=== PATIENT | male | born 1945 | race Caucasian/White ===

== ENCOUNTER 2023-10-08 07:05 | Observation (INO) ==
--- NOTE | 2023-10-02 10:29 | Anesthesiology Consultation ---
Date of Service October 02, 2023 Assessment & Plan (1) Encounter for pre-operative examination: Plan - PCP office note 09/26/23 [facility]: "...hypertension...status post angioplasty stent has bilateral inguinal hernias left side has doubled in size...will hold off on colonoscopy till hernia..." - cardiology office visit 03/07/23 [facility]: "...atherosclerotic coronary disease, status post INSOLVENCY CONSULTANT and stent of the left circumflex, June 2005 in the setting of acute ST elevation myocardial infarction. Stable class II angina pectoris with repeat cardiac catheterization March 2014 demonstrating distal right coronary artery stenosis...mild renal insufficiency...generally has been doing well...continue current medical regimen only change to reduce hydrochlorothiazide to 3 days per week..." - Per street inspector on 10/02/23: No known infectious disease contacts, current infectious disease symptoms in past 10 days or COVID positive test result in the past 30 days. Chart Review Chart Review: Acceptable Risk for Surgery and Patient NOT seen in Pre Admission Testing History Surgery Operation Date: 10/08/23 07:00 Proposed Procedures p Laparoscopic Bilateral Inguinal Hernia Repair With Mesh, Possible Open - Khoi Pena MD Height/Weight Height: 5 ft 3 in Weight: 70.307 kg Allergies Allergy/AdvReac Type Severity Reaction Status Date / Time No Known Allergies Allergy Unknown Verified 10/02/23 09:41 Medications Home Medications Medication Instructions Recorded Confirmed Last Taken amlodipine 10 mg tablet 10 mg PO QAM 10/21/20 10/02/23 10/22/20 atorvastatin 40 mg tablet 40 mg PO PM 10/21/20 10/02/23 10/21/20 losartan 100 mg tablet 100 mg PO PM 10/21/20 10/02/23 10/21/20 metoprolol succinate 25 mg 12.5 mg PO PM 10/21/20 10/02/23 10/21/20 tablet,extended release 24 hr multivitamin 1 tab PO PM 10/21/20 10/02/23 10/21/20 omeprazole 40 mg capsule,delayed 40 mg PO QAM 10/21/20 10/02/23 10/22/20 release hydrochlorothiazide 25 mg tablet 25 mg PO .UD 08/02/21 10/02/23 Unknown aspirin 81 mg capsule 81 mg PO QAM 02/07/22 10/02/23 Unknown terazosin 5 mg capsule 5 mg PO QPM 02/07/22 10/02/23 Unknown hydralazine 25 mg tablet 25 mg PO BID 08/08/22 10/02/23 Unknown finasteride 5 mg tablet 5 mg PO QPM 10/02/23 10/02/23 Unknown Past Medical History Medical History Barretts esophagus Bilateral inguinal hernia (BIH) Bilateral kidney stones no problems BPH w urinary obs/LUTS CAD (coronary artery disease) follows with Dr. Sow at [facility] Chronic kidney disease (CKD) Diverticulosis Gallstones episodic RUQ pain GERD (gastroesophageal reflux disease) History of posterior vitreous detachment (~2022) right eye, follows Dr. Pappas, Retinologist Hx of myocardial infarction (~2005) [facility] [place], [place], 1 stent Right Circumflex, follows with Dr. Sow at [facility] Hypertension Prediabetes A1C 6.1, diet controlled Renal cyst, left monitored, follows with Dr. Smith, Urology at [facility] Right bundle branch block Past Family History Family History Other No pertinent family history Past Surgical History Surgical History Hx of bilateral cataract extraction Hx of cardiac catheterization (~2005) x2 [facility] [place], [place], 1 stent Right Circumflex, follows with Dr. Sow at [facility] 2nd cath approx. 8 years ago (2015), no stent Hx of colonoscopy Hx of esophagogastroduodenoscopy Hx of heart artery stent [facility] [place], [place], 1 stent Right Circumflex, follows with Dr. Sow at [facility] Social History Smoking Status: Former smoker Do You Dip or Chew Tobacco: No Smoking End Date: quit (50 pack year history) Hx Alcohol Use: Yes alcohol intake frequency: holidays/special occasions only Hx Substance Use: No substance use type: does not use Testing Laboratory Results 09/26/23 WBC: 5.2 H/H: 12 PLATELETS: 242,000 SODIUM: 138 POTASSIUM: 4.3 CHLORIDE: 101 CO2: 24 BUN: 24 CREATININE: 1.4 GLUCOSE: 133 A1c: 6.1% Electrocardiogram Date: 09/27/23 Sinus bradycardia, rate 54 bpm RBBB Echocardiogram Date: 05/05/22 EF 60-64% Borderline concentric LV wall thickness Grade I diastolic dysfunction Mild aortic valve sclerosis Mild mitral regurgitation Stress Test Date: 07/11/22 Exercise METS 10 MPHR 100% Mild hypokinesis of the base inferior and posterior forman at rest and stress No evidence of inducible ischemia
--- OUTSIDE RECORDS SUMMARY | 2023-10-08 07:19 | External Medical Summary | Summary of Care ---
Author Name Unknown Organization [facility] Address [address] [place] [address] Phone [phone] Care Team Providers Care Manager Wastewater Name Role Phone Kamini FARRIS MD, Satya Workman Primary Care Provider [phone] Reason for Visit * Reason Comments NEW PATIENT B/l inguinal hernia. * Evaluate & Treat - Unlimited Visits (Within 10 days (routine)) - Authorized Specialty Diagnoses / Procedures Referred By Joon florez Referred To Contact General Surgery Diagnoses Non-recurrent bilateral inguinal hernia without obstruction or gangrene Satya Miguel III, MD [address] [place] [address] Referral ID Status Reason Start Date Expiration Date Visits Requested Visits Authorized [id number] Authorized Specialty Services Required 09/26/[phone] Encounter Details Date Type Department Care Team (Late st Contact Info) Description 09/27/2023 11:30 AM EDT Office Visit General Surgery, [facility] [address] [address] Khoi Pena MD [address] [id number] Non-recurrent bilateral inguinal hernia without obstruction or gangrene* Allergies No known active allergiesdocumented as of this encounter (statuses as of 09/27/2023) Medications Medication Sig Dispensed Refills Start Date End Date Status ASPIRIN EC LOW STRENGTH 81 MG PO TBECIndications:S/P angioplasty with stent,Coronary atherosclerosis of the [place] coronary artery take one tablet daily 34 11 07/11/2005 Active Calcium Carb-Cholecalciferol 500-200 MG-UNIT Oral Tablet 0 Active Multiple Vitamin Tablet 0 Active acetaminophen (TYLENOL) 500 MG Tablet 2 Tablets every 6 hours as needed. 0 Active Finasteride 5 MG Oral Tablet (Proscar) Take 1 Tablet by mouth at bedtime. 0 01/24/2021 Active EpiPen 2-Casey 0.3 MG/0.3ML Injection Solution Auto-injector For a severe reaction: Place orange end against the outer thigh, press firmly, hold in place for 10 seconds and go to the Emergency room. 1 Each 3 09/28/2022 Active Metoprolol Succinate ER 25 MG Oral Tablet Extended Release 24 Hour (toPROL XL) TAKE 1/2 TABLET BEFORE BEDTIME 45 Tablet 3 01/26/2023 Active Terazosin HCl 5 MG Oral Capsule (Hytrin)Indications:HT N, goal below 140/90,Atherosclerosis of the [place] coronary artery of [place] heart without angina pectoris TAKE 1 CAPSULE EVERY MORNING (DOSE CHANGE) 90 Capsule 3 01/26/2023 Active hydroCHLOROthiazide 25 MG Oral Tablet (Hydrodiuril)Indicatio ns:HTN, goal below 140/90 Take one 3 days per week 65 Tablet 3 03/07/2023 Active amLODIPine Besylate 10 MG Oral Tablet (Norvasc)Indications:H TN, goal below 140/90,Atherosclerosis of the [place] coronary artery of the [place] heart without angina pectoris,S/P angioplasty with stent TAKE 1 TABLET EVERY DAY 90 Tablet 3 05/10/2023 Active hydrALAZINE HCl 25 MG Oral Tablet (Apresoline)Indication s:HTN, goal below 140/90,Atherosclerosis of [place] coronary artery of the [place] heart without angina pectoris,S/P angioplasty with stent Take 1 Tablet by mouth 2 times a day. 180 Tablet 3 06/20/2023 Active Losartan Potassium 100 MG Oral Tablet (Cozaar) TAKE 1 TABLET EVERY DAY 90 Tablet 2 07/05/2023 Active Omeprazole 40 MG Oral Capsule Delayed Release (PriLOSEC) TAKE 1 CAPSULE DAILY, 1 HOUR BEFORE THE FIRST MEAL OF THE DAY 90 Capsule 2 07/05/2023 Active Atorvastatin Calcium 40 MG Oral Tablet (Lipitor)Indications:D yslipidemia, goal LDL below 100 TAKE 1 TABLET EVERY EVENING 90 Tablet 2 07/05/2023 Active documented as of this encounter (statuses as of 09/27/2023) Active Problems Problem Noted Date Diagnosed Date Prediabetes 07/03/2018 DYSLIPIDEMIA, GOAL LDL BELOW 100 05/18/2009 Overview: Per Lipid Taxonomy. HTN, GOAL BELOW 140/90 04/28/2009 Overview: Modified per HTN protocol #16. ADVANCE DIRECTIVE INFORMATION 07/11/2005 Overview: No, Advance Directive brochure offered , patient declined. S/P angioplasty with stent 07/11/2005 CORONARY ATHEROSCLER. 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 Dyslipidemia, goal to be determined 07/11/2005 05/18/2009 Overview: Per Lipid Taxonomy. documented as of this encounter (statuses as of 09/27/2023) Immunizations Name Administration Dates Next Due COVID-19 mRNA, LNP-s, No Pre serve, 2-Dose Series (Moderna) 08/12/2020,07/16/2020 COVID-19, MRNA-LNP, 23-24, P F, 30 MCG/0.3 mL, 12 YRS AND ABOVE, IM (PFIZER-Comirnat) 03/13/2023 COVID-19, mRNA, LNP-s, PF, B ooster, 100mcg/0.5mg (Moderna) 10/03/2021,04/06/2021 Covid-19, Mrna, Lnp-s, Pf, B ivalent, 30 Mcg, IM, 12 yrs and above (Pfizer) 12/06/2022,03/09/2022 Pneumococcal Conjugate Vacc, 13 Valent (Prevnar) 04/06/2015 Pneumococcal Polysaccharide PPV23 (Pneumovax) 04/17/2013 RSV Vac., Recomb, Adjuvant, PF,0.5 Ml (Arexvy) 02/26/2023 Seasonal Influenza, PF, 6 M & above, IM , (FluLaval or Fluzone) 03/16/2020 Seasonal Influenza, Quadriva lent Hd (Fluzone Hd) 03/26/2023,03/16/2022,03/16/2021 Seasonal Influenza, Split, I IV3, With Preserve, Inj 04/12/2017 Seasonal Influenza, Trivalen t, Adjuvanted, 65+ yrs 04/09/2019,04/28/2018 TDAP (age 10 and older)(Boostrix) 04/07/2016 Zoster Vaccine Recombinant (Shingrix) 11/27/2022 ,11/25/2022,06/27/2022 documented as of this encounter Social History Tobacco Use Types Packs/Day Years Used Date Smoking Tobacco: Former Cigarettes 1.5 6 Smokeless Tobacco: Never Alcohol Use Standard Drinks/Week Comments Yes 0 (1 standard drink = 0.6 oz pur e alcohol) socially PHQ-2 Answer Date Recorded PHQ Adult Total Score 0 03/16/2022 Hunger Vital Sign Answer Date Recorded Within the past 12 months, y ou worried that your food would run out before you got the money to buy more. Never true 09/12/19 24 Within the past 12 months, t he food you bought just didn't last and you didn't have money to get more. Never true 09/12/2023 Sex and Gender Information Value Date Recorded Sex Assigned at Male 09/12/2023 9:00 AM EDT Gender Identity Male 09/12/2023 9:00 AM EDT Sexual Orientation Straight 09/12/2023 9: 00 AM EDT Job Start Date Occupation Industry Not on file Not on file Not on file documented as of this encounter Last Filed Vital Signs Vital Sign Reading Time Taken Comments Blood Pressure 150/72 09/27/2023 11:20 AM EDT Pulse 75 09/27/2023 11:20 AM EDT Temperature - - Respiratory Rate - - Oxygen Saturation - - Inhaled Oxygen Concentration - - Weight 71.5 kg (157 lb 9.6 oz) 09/27/2023 11:20 AM EDT Height - - Body Mass Index 26.48 09/26/2023 7:58 AM EDT documented in this encounter Progress Notes * Khoi Pena MD - 09/27/2023 1:03 PM EDT CC- Chief Complaint Patient presents with NEW PATIENT B/l inguinal hernia. Ref: KAMINI SATYA FARRIS[[id number]] [address] [place] [address] (office) [phone] (fax) HPI.: Juliocesar Campos DO is a 77 year old male seen in consultation for a bilateral inguinal hernia. Symptoms have been present for a few years duration. Sxs did not start at work. Pain is dull, intermittent, and radiating to groin. Lump is not reducible. He has no Sxs of chronic constipation,chronic cough,difficulty urinating. Past Medical History Past Medical History: Diagnosis Date Gall stones Past Surgical History Past Surgical History: Procedure Laterality Date COLONOSCOPY, DIAGNOSTIC (RECTUM) 08/06/2018 tortuous colon, diverticulosis, repeat 5 yrs/COLONOSCOPY FLEXIBLE PROXIMAL DIAGNOSTIC performed by Brandyn Agustin MD at ENDOSCOPY [facility] EGD, FLEXIBLE, DIAGNOSTIC 05/28/2020 Blackburn's esophagitis, hiatal hernia, repeat 1 yr / ESOPHAGOGASTRODUODENOSCOPY (EGD), FLEXIBLE, TRANSORAL, DIAGNOSTIC performed by Soto Delcid MD at ENDOSCOPY [facility] EGD, FLEXIBLE, DIAGNOSTIC 05/17/2021 acid reflux, hiatal hernia, repeat 3 yrs / ESOPHAGOGASTRODUODENOSCOPY (EGD), FLEXIBLE, TRANSORAL, DIAGNOSTIC performed by Soto Delcid MD at ENDOSCOPY [facility] REMOVE CATARACT, INSERT LENS PROSTH Left 01/21/2019 left EXTRACAPSULAR CATARACT REMOVAL WITH INTRAOCULAR LENS performed by Dakotah Weinstein MD at OR [facility] REMOVE CATARACT, INSERT LENS PROSTH Right 01/28/2019 right EXTRACAPSULAR CATARACT REMOVAL WITH INTRAOCULAR LENS performed by Dakotah Weinstein MD at OR [facility] Medications: Current Outpatient Medications Medication Sig Dispense Refill ASPIRIN EC LOW STRENGTH 81 MG PO TBEC take one tablet daily 34 11 Calcium Carb-Cholecalciferol 500-200 MG-UNIT Oral Tablet Multiple Vitamin Tablet acetaminophen (TYLENOL) 500 MG Tablet 2 Tablets every 6 hours as needed. Finasteride 5 MG Oral Tablet (Proscar) Take 1 Tablet by mouth at bedtime. EpiPen 2-Casey 0.3 MG/0.3ML Injection Solution Auto-injector For a severe reaction: Place orange end against the outer thigh, press firmly, hold in place for 10 seconds and go to the Emergency room. 1 Each 3 Metoprolol Succinate ER 25 MG Oral Tablet Extended Release 24 Hour (toPROL XL) TAKE 1/2 TABLET BEFORE BEDTIME 45 Tablet 3 Terazosin HCl 5 MG Oral Capsule (Hytrin) TAKE 1 CAPSULE EVERY MORNING (DOSE CHANGE) 90 Capsule 3 hydroCHLOROthiazide 25 MG Oral Tablet (Hydrodiuril) Take one 3 days per week 65 Tablet 3 amLODIPine Besylate 10 MG Oral Tablet (Norvasc) TAKE 1 TABLET EVERY DAY 90 Tablet 3 hydrALAZINE HCl 25 MG Oral Tablet (Apresoline) Take 1 Tablet by mouth 2 times a day. 180 Tablet 3 Losartan Potassium 100 MG Oral Tablet (Cozaar) TAKE 1 TABLET EVERY DAY 90 Tablet 2 Omeprazole 40 MG Oral Capsule Delayed Release (PriLOSEC) TAKE 1 CAPSULE DAILY, 1 HOUR BEFORE THE FIRST MEAL OF THE DAY 90 Capsule 2 Atorvastatin Calcium 40 MG Oral Tablet (Lipitor) TAKE 1 TABLET EVERY EVENING 90 Tablet 2 No current facility-administered medications for this visit. Allergies: Allergies as of 09/27/2023 (No Known Allergies) Family History Family History Problem Relation Age of Onset Breast Cancer Mother Alzheimer's disease Mother Macular degeneration Mother Cancer Father gastric @ 48 Hypertension Brother Other (Other) Brother prediabetes, tubulovillous adenoma, obesity Social History Social History Socioeconomic History Marital status: Spouse name: Not on file Number of children: Not on file Years of education: Not on file Highest education level: Not on file Occupational History Not on file Tobacco Use Smoking status: Former Current packs/day: 1.50 Average packs/day: 1.5 packs/day for 6.0 years (9.0 ttl pk-yrs) Types: Cigarettes Smokeless tobacco: Never Vaping Use Vaping Use: Never used Substance and Sexual Activity Alcohol use: Yes Comment: socially Drug use: No Sexual activity: Not on file Other Topics Concern Not on file Social History Narrative Not on file Social Determinants of Health Financial Resource Strain: Not on file Food Insecurity: No Food Insecurity (09/12/2023) Hunger Vital Sign Worried About Running Out of Food in the Last Year: Never true Ran Out of Food in the Last Year: Never true Transportation Needs: Not on file Physical Activity: Not on file Stress: Not on file Social Connections: Not on file Intimate Partner Violence: Not on file Housing Stability: Not on file ROS: GEN: no weight loss, fever, fatigue HEENT: no changes in vision or hearing, no sinus problems, no sore throat, no hoarseness RESPIRATORY: no cough, wheezing, SOB or change in breathing CARDIOVASCULAR: no exertional chest pain, dyspnea, palpitations GI: no melena or hemetemesis, no change in bowel habits, no nausea or vomiting : no dysuria, hematuria, frequency MUSCULOSKELETAL: no change in joint pains, no new arthritis PSYCHIATRIC: no significant anxiety or depression, unchanged sleep pattern HEME: no bleeding tendency, no clotting tendency NEURO: no significant headache, no seizures , no tremors SKIN: no new rashes, no itching Physical Exam: Blood pressure 150/72, pulse 75, weight 71.5 kg (157 lb 9.6 oz). Constitutional: alert, healthy, well nourished Head: normocephalic, atraumatic Eyes: conjunctiva non-injected, sclera white Neck: supple, no adenopathy Lungs: clear to auscultation, breath sounds are equal and symmetric Heart: regular rate & rhythm and no murmur, gallops or rubs Abdomen: soft, non-tender Back: normal curvature, normal ROM, no CVA tenderness Extremities: no edema, no skin discoloration Skin: no obvious rashes or significant lesions Imaging: Reviewed old CT scan independently IMP: Juliocesar Campos DO is a 77 year old male with a large bilateral inguinal hernia which is currently symptomatic. For this reason, I have recommended that the patient consider a hernia repair. This could be performed in open or laparascopic approach. As his hernias are bilateral, we will attemptto proceed with laparoscopic repair. The left hernia is quite large, and may require open procedure. We discussed this at an depth. I discussed the surgery in detail and the complications related to the surgery and the anesthesia. Risks include, but are not limited to: recurrence of the hernia, persistent pain in the groin from injury to the ilioinguinal nerve, numbness, seroma formation, bleeding, infection and mesh infection requiring mesh removal. Patient understands these risks. Expected same day nature of surgery and postoperative recovery period reviewed. Activity restrictions postoperatively to include no heavy lifting or high impact activity for four to six weeks reviewed. All questions were answered to the patient's satisfaction and consent was signed. We also reviewed the signs and symptoms of incarceration and the patient was instructed to go directly to the emergency room should this occur. Khoi Pena MD 09/27/2023 1:03 PM * Sahra Solis LPN - 09/27/2023 12:18 PM EDT Patient identified by name and date of . Chief Complaint Patient presents with NEW PATIENT B/l inguinal hernia. Patient scheduled at [facility] for fara inguinal hernia with dr pena. Date of Test: 10/08/2023 Medications reviewed. EKG obtained Labs: obtained- done yesterday- no need to do today Permit signed. Patient verbalizes understanding of pre- and post op instructions. Written instructions given for review at later date. Sahra Solis LPN 09/27/2023 documented in this encounter Nursing Notes * Justice Del Castillo MED ASSIST - 09/27/2023 11:21 AM EDT Chief Complaint Patient presents with NEW PATIENT B/l inguinal hernia. Verified patient. Some pain 5/10 on/off. Patient is here for a surgery consultation today. documented in this encounter Plan of Treatment Upcoming Encounters Date Type Department Care Team (Late st Contact Info) Description 10/10/2023 9:45 AM EDT Scheduled Telephone General Surgery, [facility] [address] [place] [address] Ankur, Nurse Gen Surg [facility] [address] [place] [address] 10/12/2023 3:30 PM EDT Office Visit Cardiology, [facility] [address] [place] [address] David Sow MD [address] [place] [address] 10/24/2023 11:45 AM EDT Office Visit General Surgery, [facility] [address] [place] [address] Khoi Pena MD [address] [place] [address] 04/02/2024 8:00 AM EDT Office Visit Family Practice [facility] [address] [place] [address] Satya Miguel III, MD [address] [place] [place] [address] Scheduled Orders Name Type Priority Associated Diagnoses Orde r Schedule EKG EKG Routine Non-recurrent bilateral inguinal hernia without obstruction or gangrene Ordered: 09/27/2023 Scheduled Procedures Name Priority Associated Diagnoses Date/Ti me LAPAROSCOPIC REPAIR INGUINAL HERNIA INITIAL Non-recurrent bilateral inguinal hernia without obstruction or gangrene ESOPHAGOGASTRODUODENOSCOPY ( EGD), FLEXIBLE, TRANSORAL, DIAGNOSTIC Recall Blackburn esophagus COLONOSCOPY FLEXIBLE PROXIMAL DIAGNOSTIC Recall Family history of colonic polyps Health Maintenance Due Date Last Done Comments Depression Screening 03/16/2023 03/16/2022 COLONOSCOPY-EVERY 5 YRS AGES 18-100 08/06/2023 08/06/2018, 08/06/2018 GFR 09/25/2024 09/26/2023, 03/11, 09/14/2022, Additional history exists HbA1c 09/25/2024 09/26/2023, 04/0 11/2022, 12/13/2021, Additional history exists DTaP,Tdap,and Td Vaccines (2 - Td or Tdap) 04/07/2026 04/07/2016 Albumin/Creatinine Ratio 09/25/2026 024, 03/26/2023, 03/17/2022, Additional history exists Pneumococcal Vaccine: 65+ Years Completed 04/06/2015, 04/17/2013 Zoster Vaccines Completed 11/27/2022, 11/09, 06/27/2022 COVID-19 Vaccine Completed 03/13/2023, , 03/09/2022, Additional history exists Influenza Vaccine (FLU shot) Completed , 03/26/2023, 03/16/2022, Additional history exists GARDASIL-HPV IMMUNIZATION SERIES Aged Out No longer eligible based on patient's age to complete this topic Hepatitis B Aged Out No longer eligi ble based on patient's age to complete this topic MENINGOCOCCAL (MENACTRA/MENVEO) Aged Out No longer eligible based on patient's age to complete this topic documented as of this encounter Medical Devices Implanted Type Area Roller Painter Device Identifier Shelf Expiration Date Model / Serial / Lot Lens Intraoc 23.5 - [id number] - [id number] Implanted:Qty: 1 on 01/21/2019 by Dakotah Weinstein MD at OR [facility] Left: Eye [employer] 04/10/2023 [id number] / [id number] / Lens Intraoc 23.5 - [id number] - [id number] Implanted:Qty: 1 on 01/28/2019 by Dakotah Weinstein MD at OR [facility] Right: Eye [employer] 10/09/2023 [id number] / [id number] / [id number] documented as of this encounter Visit Diagnoses Diagnosis Non-recurrent bilateral inguinal hernia without obstruction or gangrene- Primary documented in this encounter Advance Directives Documents on File Type Date Recorded 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
--- OUTSIDE RECORDS SUMMARY | 2023-10-08 07:20 | External Medical Summary | Summary of Care ---
Author Name Unknown Organization [facility] Address [address] [facility] [place] [address] Phone [phone] Care Team Providers Care Crew Leader/Control Room Operator Name Role Phone Lamont FARRIS MD, Satya Workman Primary Care Provider [phone] Reason for Visit * Reason Comments eRx-Medication Refill Encounter Details Date Type Department Care Team (Late st Contact Info) Description 07/04/2023 Refill Family Practice [facility] [address] [facility] [place] [address] Satya Suárez III, MD [address] [facility] [place] [address] Dyslipidemia, goal LDL below 100 Allergies No known active allergiesdocumented as of this encounter (statuses as of 07/05/2023) Medications Medication Sig Dispensed Refills Start Date End Date Status ASPIRIN EC LOW STRENGTH 81 MG PO TBECIndications:S/P angioplasty with stent,Coronary atherosclerosis of eagle coronary artery take one tablet daily 34 11 6 Active Calcium Carb-Cholecalciferol 500-200 MG-UNIT Oral Tablet 0 Active Multiple Vitamin Tablet 0 Active acetaminophen (TYLENOL) 500 MG Tablet 2 Tablets every 6 hours as needed. 0 Active Finasteride 5 MG Oral Tablet (Proscar) Take 1 Tablet by mouth at bedtime. 0 1 Active EpiPen 2-Casey 0.3 MG/0.3ML Injection Solution Auto-injector For a severe reaction: Place orange end against the outer thigh, press firmly, hold in place for 10 seconds and go to the Emergency room. 1 Each 3 3 Active Metoprolol Succinate ER 25 MG Oral Tablet Extended Release 24 Hour (toPROL XL) TAKE 1/2 TABLET BEFORE BEDTIME 45 Tablet 3 3 Active Terazosin HCl 5 MG Oral Capsule (Hytrin)Indications: HTN, goal below 140/90,Atheroscleros is of eagle coronary artery of eagle heart without angina pectoris TAKE 1 CAPSULE EVERY MORNING (DOSE CHANGE) 90 Capsule 3 3 Active hydroCHLOROthiazide 25 MG Oral Tablet (Hydrodiuril)Indicat ions:HTN, goal below 140/90 Take one 3 days per week 65 Tablet 3 3 Active amLODIPine Besylate 10 MG Oral Tablet (Norvasc)Indications :HTN, goal below 140/90,Atheroscleros is of eagle coronary artery of eagle heart without angina pectoris,S/P angioplasty with stent TAKE 1 TABLET EVERY DAY 90 Tablet 3 3 Active hydrALAZINE HCl 25 MG Oral Tablet (Apresoline)Indicati ons:HTN, goal below 140/90,Atheroscleros is of eagle coronary artery of eagle heart without angina pectoris,S/P angioplasty with stent Take 1 Tablet by mouth 2 times a day. 180 Tablet 3 4 Active Losartan Potassium 100 MG Oral Tablet (Cozaar) TAKE 1 TABLET EVERY DAY 90 Tablet 2 4 Active Omeprazole 40 MG Oral Capsule Delayed Release (PriLOSEC) TAKE 1 CAPSULE DAILY, 1 HOUR BEFORE THE FIRST MEAL OF THE DAY 90 Capsule 2 4 Active Atorvastatin Calcium 40 MG Oral Tablet (Lipitor)Indications :Dyslipidemia, goal LDL below 100 TAKE 1 TABLET EVERY EVENING 90 Tablet 2 4 Active Omeprazole 40 MG Oral Capsule Delayed Release (PriLOSEC) TAKE 1 CAPSULE DAILY, 1 HOUR BEFORE THE FIRST MEAL OF THE DAY 90 Capsule 2 3 07/05/19 24 Discontinued Losartan Potassium 100 MG Oral Tablet (Cozaar) TAKE 1 TABLET EVERY DAY 90 Tablet 1 3 07/05/19 24 Discontinued Atorvastatin Calcium 40 MG Oral Tablet (Lipitor)Indications :Dyslipidemia, goal LDL below 100 TAKE 1 TABLET EVERY EVENING 90 Tablet 1 3 07/05/19 24 Discontinued documented as of this encounter (statuses as of 07/05/2023) Active Problems Problem Noted Date Diagnosed Date Benign hypertensive heart an d CKD, 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 HTN, GOAL BELOW 140/90 04/28/2009 Overview: Modified per HTN protocol #16. ADVANCE DIRECTIVE INFORMATION 07/11/2005 Overview: No, Advance Directive brochure offered , patient declined. S/P angioplasty with stent 07/11/2005 CORONARY ATHEROSCLER. 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 Dyslipidemia, goal to be determined 07/11/2005 05/18/2009 Overview: Per Lipid Taxonomy. documented as of this encounter (statuses as of 07/05/2023) Immunizations Name Administration Dates Next Due COVID-19 mRNA, LNP-s, No Pre serve, 2-Dose Series (Moderna) 08/12/2020,07/16/2020 COVID-19, MRNA-LNP, 23-24, P F, 30 MCG/0.3 mL, 12 YRS AND ABOVE, [facility] 03/13/2023 COVID-19, mRNA, LNP-s, PF, B ooster, [...] 03/16/2022 Hunger Vital Sign Answer Date Recorded Worried About Running Out of Food in the Last Ye ar Never true 07/07/2019 Ran Out of Food in the Last Year Never true 07/07/2019 Sex and Gender Information Value Date Recorded Sex Assigned at Not on file Gender Identity Not on file Sexual Orientation Not on file Job Start Date Occupation Industry Not on file Not on file Not on file documented as of this encounter Miscellaneous Notes * Telephone Encounter - Raquel Velez, [facility] - 07/05/2023 6:50 AM ESTSigned Prescriptions: Disp Refills Losartan Potassium 100 MG Oral Tablet (Coz*90 Tab*2 Sig: TAKE 1 TABLET EVERY DAYAuthorizing Provider: SATYA SUÁREZ III [facility] User: RAQUEL VELEZ Omeprazole 40 MG Oral Capsule Delayed Rele*90 Cap*2 Sig: TAKE 1 CAPSULE DAILY, 1 HOUR BEFORE THE FIRST MEAL OF THE DAYAuthorizing Provider: SATYA SUÁREZ III User: RAQUEL VELEZ Atorvastatin [id number] MG Oral Tablet (Li*90 Tab*2 Sig: TAKE 1 TABLET EVERY EVENINGAuthorizing Provider: SATYA SUÁREZ III User: RAQUEL VELEZ documented in this encounter Plan of Treatment Upcoming Encounters Date Type Department Care Team (Late st Contact Info) Description 09/26/2023 8:00 AM EDT Office Visit Family Practice [facility] [place] [address] [place] [address] Satya Suárez III, MD [address] [facility] [place] [address] Scheduled Procedures Name Priority Associated Diagnoses Date/Ti me ESOPHAGOGASTRODUODENOSCOPY ( EGD), FLEXIBLE, TRANSORAL, DIAGNOSTIC Recall Blackburn esophagus COLONOSCOPY FLEXIBLE PROXIMAL DIAGNOSTIC Recall Family history of colonic polyps Health Maintenance Due Date Last Done Comments Depression Screening 03/16/2023 03/16/2022 COLONOSCOPY-EVERY 5 YRS AGES 18-100 08/06/2023 08/06/2018, 08/06/2018 HbA1c 09/15/2023 09/14/2022, 07/0 10/2021, 09/14/2021, Additional history exists GFR 09/25/2023 03/26/2023, 040 11/2022, 05/16/2022, Additional history exists Albumin/Creatinine Ratio 03/26/20242 023, 03/17/2022, 07/07/2019 CKD HGB USE SMARTSET 38463 03/26/202403/26, 09/14/2022, 09/14/2022, Additional history exists CKD PHOS USE SMARTSET 65325 03/26/202403/11, 09/14/2021, 09/14/2020, Additional history exists DTaP,Tdap,and Td Vaccines (2 - Td or Tdap) 04/07/2026 04/07/2016 Pneumococcal Vaccine: 65+ Years Completed 04/06/2015, 04/17/2013 [...] this encounter Medical Devices Implanted Type Area Time Study Statistician Device Identifier Shelf Expiration Date Model / Serial / Lot Lens Intraoc 23.5 - [id number] - [id number] Implanted:Qty: 1 on 01/21/2019 by Dakotah Weinstein MD at [facility] Left: Eye [employer]CH [employer]OM[employer] 04/10/2023 [id number] / [id number] / Lens Intraoc 23.5 - [id number] - [id number] Implanted:Qty: 1 on 01/28/2019 by Dakotah Weinstein MD at [facility] Right: Eye BAUSCH [employer] LOMB 10/09/2023 [id number] / [id number] / [id number] documented as of this encounter Visit Diagnoses Diagnosis Dyslipidemia, goal LDL below 100 Other and unspecified hyperlipidemia documented in this encounter Advance Directives Documents on File Type Date Recorded Patient Sales Property Manager Expl anation Advance Directives and Livin g Will 07/30/2018 LIVING WILL Power of Special Agent Group Insurance 07/30/2018 POWER OF A TTORNEY Care Teams Crew Leader/Control Room Operator Relationship Specialty Start Date End Date Satya Suárez III, MD [address] [place] [address] PCP - General Family Medicine 07/03/18 documented as of this encounter
--- OUTSIDE RECORDS SUMMARY | 2023-10-08 07:20 | External Medical Summary | Summary of Care ---
Author Name Unknown Organization [facility] Address [address] [facility] [place] [address] Phone [phone] Care Team Providers Care Nurse Advocate Name Role Phone Lamont FARRIS MD, Billy Workman Primary Care Provider [phone] Reason for Visit * Reason Comments eRx-Medication Refill Encounter Details Date Type Department Care Team (Late st Contact Info) Description 05/09/2023 Refill Cardiology, [facility] [address] [place] [address] Luis Armando Sow MD [address] [place] [address] HTN, goal below 140/90; Atherosclerosis of tanana coronary artery of tanana heart without angina pectoris; S/P angioplasty with stent Allergies No known active allergiesdocumented as of this encounter (statuses as of 05/10/2023) Medications Medication Sig Dispensed Refills Start Date End Date Status ASPIRIN EC LOW STRENGTH 81 MG PO TBECIndications:S/P angioplasty with stent,Coronary atherosclerosis of tanana coronary artery take one tablet daily 34 11 6 Active Calcium Carb-Cholecalciferol 500-200 MG-UNIT Oral Tablet 0 Active Multiple Vitamin Tablet 0 Active acetaminophen (TYLENOL) 500 MG Tablet 2 Tablets every 6 hours as needed. 0 Active Finasteride 5 MG Oral Tablet (Proscar) Take 1 Tablet by mouth at bedtime. 0 1 Active Omeprazole 40 MG Oral Capsule Delayed Release (PriLOSEC) TAKE 1 CAPSULE DAILY, 1 HOUR BEFORE THE FIRST MEAL OF THE DAY 90 Capsule 2 3 Active EpiPen 2-Casey 0.3 MG/0.3ML Injection Solution Auto-injector For a severe reaction: Place orange end against the outer thigh, press firmly, hold in place for 10 seconds and go to the Emergency room. 1 Each 3 3 Active Losartan Potassium 100 MG Oral Tablet (Cozaar) TAKE 1 TABLET EVERY DAY 90 Tablet 1 3 Active Atorvastatin Calcium 40 MG Oral Tablet (Lipitor)Indications :Dyslipidemia, goal LDL below 100 TAKE 1 TABLET EVERY EVENING 90 Tablet 1 3 Active Metoprolol Succinate ER 25 MG Oral Tablet Extended Release 24 Hour (toPROL XL) TAKE 1/2 TABLET BEFORE BEDTIME 45 Tablet 3 3 Active Terazosin HCl 5 MG Oral Capsule (Hytrin)Indications: HTN, goal below 140/90,Atheroscleros is of tanana coronary artery of tanana heart without angina pectoris TAKE 1 CAPSULE EVERY MORNING (DOSE CHANGE) 90 Capsule 3 3 Active hydroCHLOROthiazide 25 MG Oral Tablet (Hydrodiuril)Indicat ions:HTN, goal below 140/90 Take one 3 days per week 65 Tablet 3 3 Active hydrALAZINE HCl 25 MG Oral Tablet (Apresoline)Indicati ons:HTN, goal below 140/90,Atheroscleros is of tanana coronary artery of tanana heart without angina pectoris,S/P angioplasty with stent Take 1 Tablet by mouth. 0 3 Active amLODIPine Besylate 10 MG Oral Tablet (Norvasc)Indications :HTN, goal below 140/90,Atheroscleros is of tanana coronary artery of tanana heart without angina pectoris,S/P angioplasty with stent TAKE 1 TABLET EVERY DAY 90 Tablet 3 3 Active amLODIPine Besylate 10 MG Oral Tablet (Norvasc)Indications :HTN, goal below 140/90,Atheroscleros is of tanana coronary artery of tanana heart without angina pectoris,S/P angioplasty with stent TAKE 1 TABLET EVERY DAY 90 Tablet 3 2 05/10/20 23 Discontinued documented as of this encounter (statuses as of 05/10/2023) Active Problems Problem Noted Date Diagnosed Date [...] angioplasty with stent 07/11/2005 CORONARY ATHEROSCLER. OF [place] CORONARY VESSEL 07/11/2005 documented as of this encounter (statuses as of 05/10/2023) Resolved Problems Problem Noted Date Diagnosed Date Resolved Date Atherosclerosis of tanana co ronary artery of tanana heart with stable angina pectoris 12/30/2018 12/30/2018 Hypertensive kidney disease with chronic kidney disease stage III 12/25/2018 09/14/2022 Kidney disease, chronic, sta ge III (GFR 30-59 ml/min) 08/19/2018 01/23/2019 Overview: Per CKD protocol #1 HYPERTENSION NOS 07/11/2005 04/28/2009 Overview: Modified per HTN protocol #16. Dyslipidemia, goal to be determined 07/11/2005 05/18/2009 Overview: Per Lipid Taxonomy. documented as of this encounter (statuses as of 05/10/2023) Immunizations Name Administration Dates Next Due COVID-19 [...] (Prevnar) 04/06/2015 Pneumococcal Polysaccharide PPV23 (Pneumovax) 04/17/2013 Rsv Vac., Recomb, Adjuvant, Pf,0.5 Ml (Arexvy) 02/26/2023 SEASONAL INFLUENZA, PF, 6 M & Above, IM , (FLULAVAL or FLUZONE) 03/16/2020 Seasonal Influenza, Quadriva lent Hd (Fluzone [...] encounter Miscellaneous Notes * Telephone Encounter - Luis Armando Sow MD - 05/10/2023 9:51 AM ESTSigned Prescriptions: Disp Refills amLODIPine Besylate 10 MG Oral Tablet (Nor*90 Tab*3 Sig: TAKE 1 TABLET EVERY DAY Authorizing Provider: LUIS ARMANDO SOW * Telephone Encounter - Lucretia Guillen CMA - 05/09/2023 3:14 PM ESTPending Prescriptions: Disp Refills amLODIPine Besylate 10 MG Oral Tablet [Pha*90 Tab*3 Sig: TAKE 1 TABLET EVERY DAY * Telephone Encounter - Lucretia Guillen CMA - 05/09/2023 3:13 PM EST Did you pend patient's preferred pharmacy and medication before forwarding?yes [facility] [address] [facility] Pending Prescriptions: Disp Refills amLODIPine Besylate 10 MG Oral Tablet (No*90 Tab*3 Sig: TAKE 1 TABLET EVERY DAY Last Visit: 03/07/2023 (in office), Visit date not found (telemedicine) Next Visit: Visit date not found If no future appointments scheduled, and last appointment is greater than a year ago, please schedule patient for a follow-up appointment Last date the medication was ordered: Is this request for a controlled substance?No Urine Drug Screen:No results found for this or any previous visit. Patient Phone Numbers Labs: Lab Results Component Value Date/Time CREAT 1.3 (H) 03/26/2023 08:38 AM CREAT 1.18 09/07/2020 12:00 AM CREAT 1.2 05/13/2020 11:20 AM POTASSIUM 4.5 03/26/2023 08:38 AM POTASSIUM 4.1 09/07/2020 12:00 AM POTASSIUM 4.6 05/13/2020 11:20 AM TSH 2.67 09/14/2022 08:35 AM TSH 1.45 12/11/2002 01:54 PM LDLCALC 58 09/14/2022 08:35 AM LDLCALC 38 10/03/2019 08:41 AM LDLDIRECT NOT APPLICABLE 12/22/2016 09:33 AM LDLDIRECT 40 09/28/2005 09:15 AM LDLDIRECT RESULTS RECHECKED 09/28/2005 09:15 AM ALT 21 03/26/2023 08:38 AM ALT 31 05/13/2020 11:20 AM HGBA1C 6.1 (H) 09/14/2022 08:35 AM HGBA1C 6.1 (H) 07/07/2019 09:43 AM documented in this encounter Plan of Treatment Upcoming Encounters Date Type Department Care Team (Late st Contact Info) Description 09/26/2023 8:00 AM EDT Office Visit Family Practice [facility] [address] [facility] [place] [address] FoardBilly shaikh III, MD [address] [place] [address] Scheduled Procedures Name Priority Associated Diagnoses Date/Ti me ESOPHAGOGASTRODUODENOSCOPY ( EGD), FLEXIBLE, TRANSORAL, DIAGNOSTIC Recall [place] esophagus COLONOSCOPY FLEXIBLE PROXIMAL DIAGNOSTIC Recall Family history of colonic polyps Health Maintenance Due Date Last Done Comments Depression Screening 03/16/2023 03/16/2022 COLONOSCOPY-EVERY 5 YRS AGES 18-100 08/06/2023 08/06/2018, 08/06/2018 HbA1c 09/15/2023 09/14/2022, 07/0 10/2021, 09/14/2021, Additional history exists GFR 09/25/2023 03/26/2023, 04/0 11/2022, 05/16/2022, Additional history exists Albumin/Creatinine Ratio 03/26/2024 023, 03/17/2022, 07/07/2019 CKD HGB USE SMARTSET 10307 03/26/202403/26, 09/14/2022, 09/14/2022, Additional history exists CKD PHOS USE SMARTSET 35556 03/26/202403/11, 09/14/2021, 09/14/2020, Additional history exists DTaP,Tdap,and [...] this encounter Medical Devices Implanted Type Area Regulatory Submissions Associate Device Identifier Shelf Expiration Date Model / Serial / Lot Lens Intraoc 23.5 - [id number] - [id number] Implanted:Qty: 1 on 01/21/2019 by Dakotah Weinstein MD at [facility] Left: Eye [employer]CH [employer]OMB 04/10/2023 [id number] / [id number] / Lens Intraoc 23.5 - [id number] - [id number] Implanted:Qty: 1 on 01/28/2019 by Dakotah Weinstein MD at [facility] Right: Eye BAUSCH [employer] LOMB 10/09/2023 [id number] / [id number] / [id number] documented as of this encounter Visit Diagnoses Diagnosis HTN, goal below 140/90 Unspecified essential hypertension Atherosclerosis of tanana coronary artery of tanana heart without angina pectoris S/P angioplasty with stent Postsurgical percutaneous transluminal coronary angioplasty status documented in this encounter Advance Directives Documents on File Type Date Recorded Patient Curtain Mender Expl anation Advance Directives and Livin g Will 07/30/2018 LIVING WILL Power of Personalized Living Manager 07/30/2018 POWER OF A TTORNEY Care Teams Nurse Advocate Relationship Specialty Start Date End Date Billy Miguel III, MD [address] [facility] [place] [address] PCP - General Family Medicine 07/03/18 documented as of this encounter
--- OUTSIDE RECORDS SUMMARY | 2023-10-08 07:20 | External Medical Summary | Summary of Care ---
Author Name Unknown Organization [facility] Address [address] [place] [facility] [place] [address] Phone [phone] Care Team Providers Care Wallpaper Embosser Helper Name Role Phone Lamont FARRIS MD, Billy Workman Primary Care Provider [phone] Reason for Referral * Evaluate & Treat - Unlimited Visits (Within 10 days (routine)) - Authorized Specialty Diagnoses / Procedures Referred By Joon florez Referred To Contact General Surgery Diagnoses Non-recurrent bilateral inguinal hernia without obstruction or gangrene Billy Miguel III, MD [address] [facility] [place] [address] Referral ID Status Reason Start Date Expiration Date Visits Requested Visits Authorized [id number] Authorized Specialty Services Required 09/26/[phone] Question Answer Referral Priority Within 10 days (routine) [facility] this appointment be scheduled? [facility] What condition is the patient being seen for? General Surgery Conditions What condition is the patient being seen for? 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)*; HTN, GOAL BELOW 140/90; DYSLIPIDEMIA, GOAL LDL BELOW 100; Prediabetes; Non-recurrent bilateral inguinal hernia without obstruction or gangrene Allergies No known active allergiesdocumented as of this encounter (statuses as of 09/26/2023) Medications Medication Sig Dispensed Refills Start Date End Date Status ASPIRIN EC LOW STRENGTH 81 MG PO TBECIndications:S/P angioplasty with stent,Coronary atherosclerosis of [place] coronary artery take one tablet daily 34 [...] Capsule (Hytrin)Indications:HT N, goal below 140/90,Atherosclerosis of [place] coronary artery of [place] heart without angina pectoris TAKE 1 CAPSULE EVERY MORNING (DOSE CHANGE) 90 Capsule 3 01/26/2023 Active hydroCHLOROthiazide 25 MG Oral Tablet (Hydrodiuril)Indicatio ns:HTN, goal below 140/90 Take one 3 days per week 65 Tablet 3 03/07/2023 Active amLODIPine Besylate 10 MG Oral Tablet (Norvasc)Indications:H TN, goal below 140/90,Atherosclerosis of [place] coronary artery of [place] heart without angina pectoris,S/P angioplasty with stent TAKE 1 TABLET EVERY DAY 90 Tablet 3 05/10/2023 Active hydrALAZINE HCl 25 MG Oral Tablet (Apresoline)Indication s:HTN, goal below 140/90,Atherosclerosis of [place] coronary artery of [place] heart without angina pectoris,S/P angioplasty with stent [...] as of this encounter (statuses as of 09/26/2023) Active Problems Problem Noted Date Diagnosed Date Prediabetes 07/03/2018 DYSLIPIDEMIA, GOAL LDL BELOW 100 05/18/2009 Overview: Per Lipid Taxonomy. HTN, GOAL BELOW 140/90 04/28/2009 Overview: Modified per HTN protocol #16. ADVANCE DIRECTIVE INFORMATION 07/11/2005 Overview: No, Advance Directive brochure offered , patient declined. S/P angioplasty with stent 07/11/2005 CORONARY ATHEROSCLER. 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 Dyslipidemia, goal to be determined 07/11/2005 05/18/2009 Overview: Per Lipid Taxonomy. documented as of this encounter (statuses as of 09/26/2023) Immunizations Name Administration Dates Next Due COVID-19 mRNA, LNP-s, No Pre serve, 2-Dose Series (Moderna) 08/12/2020,07/16/2020 COVID-19, MRNA-LNP, 23-24, P F, 30 MCG/0.3 mL, 12 YRS AND ABOVE, IM (PFIZER-Comirnaty) 03/13/2023 COVID-19, mRNA, LNP-s, PF, B ooster, [...] Sign Reading Time Taken Comments Blood Pressure 120/58 09/26/2023 7:58 AM EDT Pulse 63 09/26/2023 7:58 AM EDT Temperature 35.7 C (96.2 F) 09/26/2023 7:58 AM ED T Respiratory Rate 16 09/26/2023 7:58 AM EDT Oxygen Saturation 98% 09/26/2023 7:58 AM EDT Inhaled Oxygen Concentration - - Weight 71.1 kg (156 lb 12.8 oz) 09/26/2023 7:58 AM EDT Height 164.3 cm (5' 4.69") 09/26/2023 7:58 AM ED T Body Mass Index 26.35 09/26/2023 7:58 AM EDT documented in this encounter Progress Notes * [place] III, Billy Workman MD - 09/26/2023 8:39 AM EDT Juliocesar Campos DO is a 77 year old male. Chief Complaint Patient presents with Re-Check HPI: Follow up hypertension dyslipidemia status post angioplasty stent has bilateral inguinal hernias left side has doubled in size the past couple of months achy discomfort with walking has a right-sided hernia as well had to cancel the planned trip to [place] [employer] [email or web address] no exertional chest pain can have some dyspnea on stressful climbs no change in bowels melena or gross bleeding no dysuria or hematuria PMH: Patient Active Problem List Diagnosis Code ADVANCE DIRECTIVE INFORMATION S/P angioplasty with stent Z95.820 CORONARY ATHEROSCLER. OF [place] CORONARY VESSEL I25.10 HTN, GOAL BELOW 140/90 I10 DYSLIPIDEMIA, GOAL LDL BELOW 100 E78.5 Prediabetes R73.03 Current Outpatient Medications Medication Sig Dispense Refill [...] No current facility-administered medications for this visit. Review of patient's allergies indicates: No Known Allergies Past Medical History: Diagnosis Date Gall stones Past Surgical History: Procedure Laterality Date COLONOSCOPY, DIAGNOSTIC (RECTUM) 08/06/2018 tortuous colon, diverticulosis, repeat 5 yrs/COLONOSCOPY FLEXIBLE PROXIMAL DIAGNOSTIC performed by Brandyn Agustin MD at ENDOSCOPY [facility] EGD, FLEXIBLE, DIAGNOSTIC 05/28/2020 Blackburn's esophagitis, hiatal hernia, repeat 1 yr / ESOPHAGOGASTRODUODENOSCOPY (EGD), FLEXIBLE, TRANSORAL, DIAGNOSTIC performed by Soto Delcid MD at ENDOSCOPY [facility] EGD, FLEXIBLE, DIAGNOSTIC 05/17/2021 acid reflux, hiatal hernia, repeat 3 yrs / ESOPHAGOGASTRODUODENOSCOPY (EGD), FLEXIBLE, TRANSORAL, DIAGNOSTIC performed by Soto Delcid MD at ENDOSCOPY [facility] REMOVE CATARACT, INSERT LENS PROSTH Left 01/21/2019 left EXTRACAPSULAR CATARACT REMOVAL WITH INTRAOCULAR LENS performed by Dakotah Weinstein MD at OR [facility] REMOVE CATARACT, INSERT LENS PROSTH Right 01/28/2019 right EXTRACAPSULAR CATARACT REMOVAL WITH INTRAOCULAR LENS performed by Dakotah Weinstein MD at OR [facility] Objective: The patient is a 77 year old male BP 120/58 | Pulse 63 | Temp 35.7 C (96.2 F) (Tympanic) | Resp 16 | Ht 1.643 m (5' 4.69") | Wt 71.1 kg (156 lb 12.8 oz) | SpO2 98% | BMI 26.35 kg/m | BSA 1.8 m General: alert, healthy, and no distress Eye Exam: PERRLA, extraocular movements intact, conjunctiva are pink and non- injected, sclera clear Oropharynx: no exudate, no erythema, lips, buccal mucosa, and tongue normal, and mucous membranes are moist Heart: regular rate & rhythm, no murmur, and no gallops Lungs: lungs clear to auscultation Extremities: no clubbing, no cyanosis, trace edema bilaterally Exam (Male): Bilateral inguinal hernias massive on the left ASSESSMENT: I25.118 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)(primary encounter diagnosis) I10 HTN, GOAL BELOW 140/90 E78.5 DYSLIPIDEMIA, GOAL LDL BELOW 100 R73.03 Prediabetes K40.20 Non-recurrent bilateral inguinal hernia without obstruction or gangrene PLAN: COVID booster discussed check lab work General Surgery consult will hold off on colonoscopy till hernias dealt with will be needing follow-up 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 Billy Miguel III, MD documented in this encounter Nursing Notes * Layla Win LPN - 09/26/2023 7:56 AM EDT Juliocesar Campos DO presents for 6 month recheck. Medications & HM reviewed. Hernias have become problematic and would like to address that and what to do documented in this encounter Plan of Treatment Upcoming Encounters Date Type Department Care Team (Late st Contact Info) Description 09/26/2023 9:20 AM EDT Laboratory Laboratory [facility] [address] [place], [place] [id number] [facility] [address] [facility] [place] [address] HTN, GOAL BELOW 140/90; DYSLIPIDEMIA, GOAL LDL BELOW 100; Prediabetes 09/27/2023 11:30 AM EDT Office Visit General Surgery, [facility] [address] [place] [address] Khoi Pena MD [address] [place] [address] 10/12/2023 3:30 PM EDT Office Visit Cardiology, [facility] [address] [place] [address] David Sow MD [address] [place] [address] 04/02/2024 8:00 AM EDT Office Visit Family Practice [facility] [place] [address] [facility] [place], [place] [address] Billy Miguel III, MD [address] [facility] [place] [address] Pending Results Name Type Priority Associated Diagnoses Date /Time HEMOGLOBIN A1C Lab Routine HTN, GOAL BELOW 140/90 DYSLIPIDEMIA, GOAL LDL BELOW 100 Prediabetes 09/26/2023 8:45 AM EDT COMPREHENSIVE METABOLIC PANEL Lab Routine HTN, GOAL BELOW 140/90 DYSLIPIDEMIA, GOAL LDL BELOW 100 09/26/2023 8:45 AM EDT LIPID PANEL WITH DIRECT LDL IF TG IS HIGH Lab Routine HTN, GOAL BELOW 140/90 DYSLIPIDEMIA, GOAL LDL BELOW 100 09/26/2023 8:45 AM EDT CBC Lab Routine HTN, GOAL BELOW 140/90 DYSLIPIDEMIA, GOAL LDL BELOW 100 09/26/2023 8:45 AM EDT Scheduled Orders Name Type Priority Associated Diagnoses Orde r Schedule HEMOGLOBIN A1C Lab Routine HTN, GOAL BELOW 140/90 DYSLIPIDEMIA, GOAL LDL BELOW 100 Prediabetes Expected: 09/26/2023 (Approximate), Expires: 09/25/2024 COMPREHENSIVE METABOLIC PANEL Lab Routine HTN, GOAL BELOW 140/90 DYSLIPIDEMIA, GOAL LDL BELOW 100 Expected: 09/26/2023 (Approximate), Expires: 09/25/2024 LIPID PANEL WITH DIRECT LDL IF TG IS HIGH Lab Routine HTN, GOAL BELOW 140/90 DYSLIPIDEMIA, GOAL LDL BELOW 100 Expected: 09/26/2023, Expires: 09/25/2024 CBC Lab Routine HTN, GOAL BELOW 140/90 DYSLIPIDEMIA, GOAL LDL BELOW 100 Expected: 09/26/2023 (Approximate), Expires: 09/25/2024 ALBUMIN / CREATININE RATIO, URINE Lab Routine HTN, GOAL BELOW 140/90 Prediabetes Expected: 09/26/2023 (Approximate), Expires: 09/25/2024 Scheduled Procedures Name Priority Associated Diagnoses Date/Ti me ESOPHAGOGASTRODUODENOSCOPY ( EGD), FLEXIBLE, TRANSORAL, DIAGNOSTIC Recall Blackburn esophagus COLONOSCOPY FLEXIBLE PROXIMAL DIAGNOSTIC Recall Family history of colonic polyps Scheduled Referrals Name Type Priority Associated Diagnoses Orde r Schedule SURGERY REFERRAL OP Referral Within 10 da ys (routine) Non-recurrent bilateral inguinal hernia without obstruction or gangrene Ordered: 09/26/2023 Health Maintenance Due Date Last Done Comments Depression Screening 03/16/2023 03/16/2022 COLONOSCOPY-EVERY 5 YRS AGES 18-100 08/06/2023 08/06/2018, 08/06/2018 HbA1c 09/15/2023 09/14/2022, 07/0 10/2021, 09/14/2021, Additional history exists GFR 03/26/2024 03/26/2023, 04/0 11/2022, 05/16/2022, Additional history exists Albumin/Creatinine Ratio 03/26/2026 023, 03/17/2022, 07/07/2019 DTaP,Tdap,and Td Vaccines (2 - Td or [...] this encounter Medical Devices Implanted Type Area [employer] Device Identifier Shelf Expiration Date Model / Serial / Lot Lens Intraoc 23.5 - [id number] - [id number] Implanted:Qty: 1 on 01/21/2019 by Dakotah Weinstein MD at OR [facility] Left: Eye [employer] 04/10/2023 [id number] / [id number] / Lens Intraoc 23.5 - [id number] - [id number] Implanted:Qty: 1 on 01/28/2019 by Dakotah Weinstein MD at OR [facility] Right: Eye [employer]OM[employer] 10/09/2023 [id number] / [id number] / [id number] documented as of this encounter Visit Diagnoses Diagnosis 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)- Primary HTN, GOAL BELOW 140/90 Unspecified essential hypertension DYSLIPIDEMIA, GOAL LDL BELOW 100 Other and unspecified hyperlipidemia Prediabetes Other abnormal glucose Non-recurrent bilateral inguinal hernia without obstruction or gangrene HTN, GOAL BELOW 140/90 Unspecified essential hypertension DYSLIPIDEMIA, GOAL LDL BELOW 100 Other and unspecified hyperlipidemia Prediabetes Other abnormal glucose documented in this encounter Advance Directives Documents on File Type Date Recorded 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
--- OUTSIDE RECORDS SUMMARY | 2023-10-08 07:20 | External Medical Summary | Summary of Care ---
Author Name Unknown Organization [facility] Address [address] [facility] [place] [address] Phone [phone] Care Team Providers Care Bridal Consultant Name Role Phone Lamont FARRIS MD, Billy Workman Primary Care Provider [phone] Reason for Visit * Reason Comments Outpatient Testing Encounter Details Date Type Department Care Team (Late st Contact Info) Description 09/26/2023 9:20 AM EDT Laboratory Laboratory [facility] [place] [address] [place] [id number] [facility] [address] [facility] [place] [address] HTN, GOAL BELOW 140/90; DYSLIPIDEMIA, GOAL LDL BELOW 100; Prediabetes Allergies No known active allergiesdocumented as of this encounter (statuses as of 09/26/2023) Medications Medication Sig Dispensed Refills Start Date End Date Status ASPIRIN EC LOW STRENGTH 81 MG PO TBECIndications:S/P angioplasty with stent,Coronary atherosclerosis of [place] coronary artery take one tablet daily 34 [...] Capsule (Hytrin)Indications:HT N, goal below 140/90,Atherosclerosis of [place] coronary artery of [place] heart without angina pectoris TAKE 1 CAPSULE EVERY MORNING (DOSE CHANGE) 90 Capsule 3 01/26/2023 Active hydroCHLOROthiazide 25 MG Oral Tablet (Hydrodiuril)Indicatio ns:HTN, goal below 140/90 Take one 3 days per week 65 Tablet 3 03/07/2023 Active amLODIPine Besylate 10 MG Oral Tablet (Norvasc)Indications:H TN, goal below 140/90,Atherosclerosis of [place] coronary artery of [place] heart without angina pectoris,S/P angioplasty with stent TAKE 1 TABLET EVERY DAY 90 Tablet 3 05/10/2023 Active hydrALAZINE HCl 25 MG Oral Tablet (Apresoline)Indication s:HTN, goal below 140/90,Atherosclerosis of [place] coronary artery of [place] heart without angina pectoris,S/P angioplasty with stent [...] angioplasty with stent 07/11/2005 CORONARY ATHEROSCLER. 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), w CHF 09/14/2021 09/26/2023 Atherosclerosis of [place] co ronary artery of [place] heart with stable angina pectoris 12/30/2018 12/30/2018 [...] on file documented as of this encounter Plan of Treatment Upcoming Encounters Date Type Department Care Team (Late st Contact Info) Description 09/27/2023 11:30 AM EDT Office Visit General Surgery, [facility] [address] [place] [address] Khoi Pena MD [address] [place] [address] 10/12/2023 3:30 PM EDT Office Visit Cardiology, [facility] [address] [address] [address] David Sow MD [address] [place] [address] 04/02/2024 8:00 AM EDT Office Visit Family Practice [facility] [place] [address] [facility] [place] [address] Billy Miguel III, MD [address] [facility] [place] [address] Pending Results Name Type Priority Associated Diagnoses [...] LDL BELOW 100 09/26/2023 8:45 AM EDT ALBUMIN / CREATININE RATIO, URINE Lab Routine HTN, GOAL BELOW 140/90 Prediabetes 09/26/2023 9:08 AM EDT Scheduled Procedures Name Priority Associated Diagnoses Date/Ti me ESOPHAGOGASTRODUODENOSCOPY ( EGD), FLEXIBLE, TRANSORAL, DIAGNOSTIC Recall Blackburn esophagus COLONOSCOPY FLEXIBLE PROXIMAL DIAGNOSTIC Recall Family history of colonic polyps Health Maintenance Due Date Last Done Comments Depression Screening 03/16/2023 03/16/2022 COLONOSCOPY-EVERY 5 YRS AGES 18-100 08/06/2023 08/06/2018, 08/06/2018 HbA1c 09/15/2023 09/14/2022, 07/0 10/2021, 09/14/2021, Additional history exists GFR 03/26/2024 03/26/2023, 040 11/2022, 05/16/2022, Additional history exists [...] this encounter Medical Devices Implanted Type Area Safety Compliance Specialist Device Identifier Shelf Expiration Date Model / Serial / Lot Lens Intraoc 23.5 - [id number] - [id number] Implanted:Qty: 1 on 01/21/2019 by Dakotah Weinstein MD at OR [facility] Left: Eye [employer]OM[employer] 04/10/2023 [id number] / [id number] / Lens Intraoc 23.5 - [id number] - [id number] Implanted:Qty: 1 on 01/28/2019 by Dakotah Weinstein MD at OR [facility] Right: Eye [employer]OM[employer] 10/09/2023 [id number] / [id number] / [id number] documented as of this encounter Visit Diagnoses Diagnosis HTN, GOAL BELOW 140/90 Unspecified essential hypertension DYSLIPIDEMIA, GOAL LDL BELOW 100 Other and unspecified hyperlipidemia Prediabetes Other abnormal glucose documented in this encounter Advance Directives Documents on File Type Date Recorded 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
--- OUTSIDE RECORDS SUMMARY | 2023-10-08 07:20 | External Medical Summary | Summary of Care ---
Author Name Unknown Organization [facility] Address [address] [place] [address] Phone [phone] Care Team Providers Care Registered Massage Therapist Name Role Phone Lamont FARRIS MD, Billy Workman Primary Care Provider [phone] Encounter Details Date Type Department Care Team (Late st Contact Info) Description 06/12/2023 Orders Only Outcomes Research Department [address] [place] [address] Josephine Christensen CHRA [employer] Other*[id number] Allergies No known active allergiesdocumented as of this encounter (statuses as of 06/12/2023) Medications Medication Sig Dispensed Refills Start Date End Date Status ASPIRIN EC LOW STRENGTH 81 MG PO TBECIndications:S/P angioplasty with stent,Coronary atherosclerosis of [place] coronary artery take one tablet daily 34 11 07/11/2005 Active Calcium Carb-Cholecalciferol 500-200 MG-UNIT Oral Tablet 0 Active Multiple Vitamin Tablet 0 Active acetaminophen (TYLENOL) 500 MG Tablet 2 Tablets every 6 hours as needed. 0 Active Finasteride 5 MG Oral Tablet (Proscar) Take 1 Tablet by mouth at bedtime. 0 01/24/2021 Active Omeprazole 40 MG Oral Capsule Delayed Release (PriLOSEC) TAKE 1 CAPSULE DAILY, 1 HOUR BEFORE THE FIRST MEAL OF THE DAY 90 Capsule 2 07/26/2022 Active EpiPen 2-Casey 0.3 MG/0.3ML Injection Solution Auto-injector For a severe reaction: Place orange end against the outer thigh, press firmly, hold in place for 10 seconds and go to the Emergency room. 1 Each 3 09/28/2022 Active Losartan Potassium 100 MG Oral Tablet (Cozaar) TAKE 1 TABLET EVERY DAY 90 Tablet 1 09/30/2022 Active Atorvastatin Calcium 40 MG Oral Tablet (Lipitor)Indications:D yslipidemia, goal LDL below 100 TAKE 1 TABLET EVERY EVENING 90 Tablet 1 11/26/2022 Active Metoprolol Succinate ER 25 MG Oral Tablet Extended Release 24 Hour (toPROL XL) TAKE 1/2 TABLET BEFORE BEDTIME 45 Tablet 3 01/26/2023 Active Terazosin HCl 5 MG Oral Capsule (Hytrin)Indications:HT N, goal below 140/90,Atherosclerosis of [place] coronary artery of [place] heart without angina pectoris TAKE 1 CAPSULE EVERY MORNING (DOSE CHANGE) 90 Capsule 3 01/26/2023 Active hydroCHLOROthiazide 25 MG Oral Tablet (Hydrodiuril)Indicatio ns:HTN, goal below 140/90 Take one 3 days per week 65 Tablet 3 03/07/2023 Active hydrALAZINE HCl 25 MG Oral Tablet (Apresoline)Indication s:HTN, goal below 140/90,Atherosclerosis of [place] coronary artery of [place] heart without angina pectoris,S/P angioplasty with stent Take 1 Tablet by mouth. 0 05/02/2023 Active amLODIPine Besylate 10 MG Oral Tablet (Norvasc)Indications:H TN, goal below 140/90,Atherosclerosis of [place] coronary artery of [place] heart without angina pectoris,S/P angioplasty with stent TAKE 1 TABLET EVERY DAY 90 Tablet 3 05/10/2023 Active documented as of this encounter (statuses as of 06/12/2023) Active Problems Problem Noted Date Diagnosed Date [...] angioplasty with stent 07/11/2005 CORONARY ATHEROSCLER. OF [place] CORONARY VESSEL 07/11/2005 documented as of this encounter (statuses as of 06/12/2023) Resolved Problems Problem Noted Date Diagnosed Date Resolved Date Atherosclerosis of [place] co ronary artery of [place] heart with stable angina pectoris 12/30/2018 12/30/2018 Hypertensive kidney disease with chronic kidney disease stage III 12/25/2018 09/14/2022 Kidney disease, chronic, sta ge III (GFR 30-59 ml/min) 08/19/2018 01/23/2019 Overview: Per CKD protocol #1 HYPERTENSION NOS 07/11/2005 04/28/2009 Overview: Modified per HTN protocol #16. Dyslipidemia, goal to be determined 07/11/2005 05/18/2009 Overview: Per Lipid Taxonomy. documented as of this encounter (statuses as of 06/12/2023) Immunizations Name Administration Dates Next Due COVID-19 [...] 8:00 AM EDT Office Visit Family Practice [facility] [address] [facility] [place] [address] Billy Miguel III, MD [address] [place] [address] Scheduled Orders Name Type Priority Associated Diagnoses Orde r Schedule MYCODE SUBSEQUENT ADULT Lab Routine [employer] Research Other*[id number] Every 6 Months for 2 Occurrences starting 06/12/2023 until 07/01/2024 Scheduled Procedures Name Priority Associated Diagnoses Date/Ti [...] 023, 03/17/2022, 07/07/2019 CKD HGB USE SMARTSET 99633 03/26/202403/26, 09/14/2022, 09/14/2022, Additional history exists CKD PHOS USE SMARTSET 87597 03/26/202403/11, 09/14/2021, 09/14/2020, Additional history exists DTaP,Tdap,and [...] this encounter Medical Devices Implanted Type Area Bankman Device Identifier Shelf Expiration Date Model / Serial / Lot Lens Intraoc 23.5 - [id number] - [id number] Implanted:Qty: 1 on 01/21/2019 by Dakotah Weinstein MD at OR [facility] Left: Eye [employer]OM[employer] 04/10/2023 [id number] / [id number] / Lens Intraoc 23.5 - [id number] - [id number] Implanted:Qty: 1 on 01/28/2019 by Dakotah Weinstein MD at OR [facility] Right: Eye [employer]OM[employer] 10/09/2023 [id number] / [id number] / [id number] documented as of this encounter Visit Diagnoses Diagnosis [employer] Research Other*[id number] documented in this encounter Advance Directives Documents on File Type Date Recorded Patient Hyperbaric Tech Expl anation Advance Directives and Livin g Will 07/30/2018 LIVING WILL Power of Shoe Salesman 07/30/2018 POWER OF A TTORNEY Care Teams Registered Massage Therapist Relationship Specialty Start Date End Date Billy Miguel III, MD [address] [facility] [place] [address] PCP - General Family Medicine 07/03/18 documented as of this encounter
--- OUTSIDE RECORDS SUMMARY | 2023-10-08 07:20 | External Medical Summary ---
Author Name Unknown Address Unknown Organization K09:[facility] [place] [address] Laboratory Report Ordering Provider Test Date Status KAMINI HERNADEZ III 09/26/2023 08:45:38 Final Observation Date Value Abnormality Reference (Units ) Status WBC, Total 09/26/2023 08:45:38 5.24 4.00-10.8 0 (K/uL) Final RBC 09/26/2023 08:45:38 3.91 4.50-5.25 (M/uL) Final Hemoglobin 09/26/2023 08:45:38 12.0 Below low normal 14 .0-16.8 (g/dL) Final HCT 09/26/2023 08:45:38 36.9 Below low normal 40. 0-48.4 (%) Final MCV 09/26/2023 08:45:38 94.4 82.0-99.5 (fL) Final MCH 09/26/2023 08:45:38 30.7 27.0-34.0 (pg) Final MCHC 09/26/2023 08:45:38 32.5 32.0-36.0 (g/dL) Final RDW 09/26/2023 08:45:38 12.3 11.5-15.5 (%) Final Platelets 09/26/2023 08:45:38 242 140-400 (K /uL) Final MPV 09/26/2023 08:45:38 9.8 6.6-11.1 ( fL) Final Performing Location [facility] [place] [address]
--- OUTSIDE RECORDS SUMMARY | 2023-10-08 07:20 | External Medical Summary | Summary of Care ---
Author Name Unknown Organization [facility] Address [address] [facility] [place] [address] Phone [phone] Care Team Providers Care Aviation Maintenance Instructor Name Role Phone Lamont FARRIS MD, Billy Workman Primary Care Provider [phone] Reason for Visit * Reason Comments Outpatient Testing Encounter Details Date Type Department Care Team (Late st Contact Info) Description 09/26/2023 9:20 AM EDT Laboratory Laboratory [facility] [place] [address] [place] [phone] [facility] [address] [facility] [place] [address] HTN, GOAL BELOW 140/90; DYSLIPIDEMIA, GOAL LDL BELOW 100; Prediabetes Allergies No known active allergiesdocumented as of this encounter (statuses as of 09/26/2023) Medications Medication Sig Dispensed Refills Start Date End Date Status ASPIRIN EC LOW STRENGTH 81 MG PO TBECIndications:S/P angioplasty with stent,Coronary atherosclerosis of [place] coronary artery take one tablet daily 34 [...] Capsule (Hytrin)Indications:HT N, goal below 140/90,Atherosclerosis of [place] coronary artery of [place] heart without angina pectoris TAKE 1 CAPSULE EVERY MORNING (DOSE CHANGE) 90 Capsule 3 01/26/2023 Active hydroCHLOROthiazide 25 MG Oral Tablet (Hydrodiuril)Indicatio ns:HTN, goal below 140/90 Take one 3 days per week 65 Tablet 3 03/07/2023 Active amLODIPine Besylate 10 MG Oral Tablet (Norvasc)Indications:H TN, goal below 140/90,Atherosclerosis of [place] coronary artery of [place] heart without angina pectoris,S/P angioplasty with stent TAKE 1 TABLET EVERY DAY 90 Tablet 3 05/10/2023 Active hydrALAZINE HCl 25 MG Oral Tablet (Apresoline)Indication s:HTN, goal below 140/90,Atherosclerosis of [place] coronary artery of [place] heart without angina pectoris,S/P angioplasty with stent [...] angioplasty with stent 07/11/2005 CORONARY ATHEROSCLER. 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), w CHF 09/14/2021 09/26/2023 Atherosclerosis of [place] co ronary artery of [place] heart with stable angina pectoris 12/30/2018 12/30/2018 [...] 11:30 AM EDT Office Visit General Surgery, [facility] [address] [address] Khoi Pena MD [address] [place] [address] 10/12/2023 3:30 PM EDT Office Visit Cardiology, [facility] [address] [address] David Sow MD [address] [place] [address] 04/02/2024 8:00 AM EDT Office Visit Family Practice [facility] [place] [address] [facility] [place] [address] Billy Miguel III, MD [address] [facility] [place] [address] Pending Results Name Type Priority Associated Diagnoses [...] BELOW 100 09/26/2023 8:45 AM EDT Scheduled Procedures Name Priority Associated [...] this encounter Medical Devices Implanted Type Area Traffic Engineering Technician Device Identifier Shelf Expiration Date Model / Serial / Lot Lens Intraoc 23.5 - [id number] - [id number] Implanted:Qty: 1 on 01/21/2019 by Dakotah Weinstein MD at OR [facility] Left: Eye [employer]OM[employer] 04/10/2023 [id number] / [id number] / Lens Intraoc 23.5 - [id number] - [id number] Implanted:Qty: 1 on 01/28/2019 by Dakotah Weinstein MD at OR [facility] Right: Eye [employer]OM[employer] 10/09/2023 [id number] / [id number] / [id number] documented as of this encounter Visit Diagnoses Diagnosis HTN, GOAL BELOW 140/90 Unspecified essential hypertension DYSLIPIDEMIA, GOAL LDL BELOW 100 Other and unspecified hyperlipidemia Prediabetes Other abnormal glucose documented in this encounter Advance Directives Documents on File Type Date Recorded Patient Electronic Court Recorder Expl anation Advance Directives and Livin g Will 07/30/2018 LIVING WILL Power of Soil Conservation Teacher 07/30/2018 POWER OF A TTORNEY Care Teams Aviation Maintenance Instructor Relationship Specialty Start Date End Date Billy Miguel III, MD [address] [place] [address] PCP - General Family Medicine 07/03/18 documented as of this encounter
--- OUTSIDE RECORDS SUMMARY | 2023-10-08 07:20 | External Medical Summary | Summary of Care ---
Author Name Unknown Organization [facility] Address [address] [facility] [place] [address] Phone [phone] Care Team Providers Care Programmer Analyst Consultant Name Role Phone Lamont FARRIS MD, Billy Workman Primary Care Provider [phone] Reason for Visit * Reason Comments Outpatient Testing Encounter Details Date Type Department Care Team (Late st Contact Info) Description 09/26/2023 9:20 AM EDT Laboratory Laboratory [facility] [place] [address] [place] [id number] [facility] [address] [facility] [place] [address] HTN, GOAL BELOW 140/90; DYSLIPIDEMIA, GOAL LDL BELOW 100; Prediabetes Allergies No known active allergiesdocumented as of this encounter (statuses as of 09/26/2023) Medications Medication Sig Dispensed Refills Start Date End Date Status ASPIRIN EC LOW STRENGTH 81 MG PO TBECIndications:S/P angioplasty with stent,Coronary atherosclerosis of [place] coronary artery take one tablet daily 34 [...] Capsule (Hytrin)Indications:HT N, goal below 140/90,Atherosclerosis of [place] coronary artery of [place] heart without angina pectoris TAKE 1 CAPSULE EVERY MORNING (DOSE CHANGE) 90 Capsule 3 01/26/2023 Active hydroCHLOROthiazide 25 MG Oral Tablet (Hydrodiuril)Indicatio ns:HTN, goal below 140/90 Take one 3 days per week 65 Tablet 3 03/07/2023 Active amLODIPine Besylate 10 MG Oral Tablet (Norvasc)Indications:H TN, goal below 140/90,Atherosclerosis of [place] coronary artery of [place] heart without angina pectoris,S/P angioplasty with stent TAKE 1 TABLET EVERY DAY 90 Tablet 3 05/10/2023 Active hydrALAZINE HCl 25 MG Oral Tablet (Apresoline)Indication s:HTN, goal below 140/90,Atherosclerosis of [place] coronary artery of [place] heart without angina pectoris,S/P angioplasty with stent [...] angioplasty with stent 07/11/2005 CORONARY ATHEROSCLER. 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), w CHF 09/14/2021 09/26/2023 Atherosclerosis of [place] co ronary artery of [place] heart with stable angina pectoris 12/30/2018 12/30/2018 [...] 11:30 AM EDT Office Visit General Surgery, [facility] [address] [address] Khoi Pena MD [address] [address] 10/12/2023 3:30 PM EDT Office Visit Cardiology, [facility] [address] [address] David Sow MD [address] [place] [address] 04/02/2024 8:00 AM EDT Office Visit Family Practice [facility] [place] [address] [facility] [place] [address] Billy Miguel III, MD [address] [facility] [place] [address] Pending Results Name Type Priority Associated Diagnoses [...] this encounter Medical Devices Implanted Type Area Molecular Spectroscopist Device Identifier Shelf Expiration Date Model / Serial / Lot Lens Intraoc 23.5 - [id number] - [id number] Implanted:Qty: 1 on 01/21/2019 by Dakotah Weinstein MD at OR [facility] Left: Eye [employer]OM[employer] 04/10/2023 [id number] / [id number] / Lens Intraoc 23.5 - [id number] - [id number] Implanted:Qty: 1 on 01/28/2019 by Dakotah Weinstein MD at OR [facility] Right: Eye [employer] 10/09/2023 [id number] / [id number] / [id number] documented as of this encounter Visit Diagnoses Diagnosis HTN, GOAL BELOW 140/90 Unspecified essential hypertension DYSLIPIDEMIA, GOAL LDL BELOW 100 Other and unspecified hyperlipidemia Prediabetes Other abnormal glucose documented in this encounter Advance Directives Documents on File Type Date Recorded Patient Licensed Optician Expl anation Advance Directives and Livin g Will 07/30/2018 LIVING WILL Power of Elastic Attacher Overlock 07/30/2018 POWER OF A TTORNEY Care Teams Programmer Analyst Consultant Relationship Specialty Start Date End Date Billy Miguel III, MD [address] [place] [address] PCP - General Family Medicine 07/03/18 documented as of this encounter
--- OUTSIDE RECORDS SUMMARY | 2023-10-08 07:20 | External Medical Summary | Summary of Care ---
Author Name Unknown Organization [facility] [address] [facility] [address] Phone [phone] Care Team Providers Care Cargo Checker Name Role Phone Lamont FARRIS MD, Billy Workman Primary Care Provider [phone] Reason for Visit * Reason Onset Date Comments Health Maintenance 09/19/2023 Encounter Details Date Type Department Care Team (Late st Contact Info) Description 09/19/2023 Telephone Family Practice [facility] [place] [address] [facility] [place] [address] Billy Miguel III, MD [address] [facility] [address] Health Maintenance Allergies No known active allergiesdocumented as of this encounter (statuses as of 09/19/2023) Medications Medication Sig Dispensed Refills Start Date End Date Status ASPIRIN EC LOW STRENGTH 81 MG PO TBECIndications:S/P angioplasty with stent,Coronary atherosclerosis of [place] coronary artery take one tablet daily 34 [...] Capsule (Hytrin)Indications:HT N, goal below 140/90,Atherosclerosis of [place] coronary artery of [place] heart without angina pectoris TAKE 1 CAPSULE EVERY MORNING (DOSE CHANGE) 90 Capsule 3 01/26/2023 Active hydroCHLOROthiazide 25 MG Oral Tablet (Hydrodiuril)Indicatio ns:HTN, goal below 140/90 Take one 3 days per week 65 Tablet 3 03/07/2023 Active amLODIPine Besylate 10 MG Oral Tablet (Norvasc)Indications:H TN, goal below 140/90,Atherosclerosis of [place] coronary artery of [place] heart without angina pectoris,S/P angioplasty with stent TAKE 1 TABLET EVERY DAY 90 Tablet 3 05/10/2023 Active hydrALAZINE HCl 25 MG Oral Tablet (Apresoline)Indication s:HTN, goal below 140/90,Atherosclerosis of [place] coronary artery of [place] heart without angina pectoris,S/P angioplasty with stent [...] as of this encounter (statuses as of 09/19/2023) Active Problems Problem Noted Date Diagnosed Date [...] angioplasty with stent 07/11/2005 CORONARY ATHEROSCLER. OF [place] CORONARY VESSEL 07/11/2005 documented as of this encounter (statuses as of 09/19/2023) Resolved Problems Problem Noted Date Diagnosed Date Resolved Date Atherosclerosis of [place] co ronary artery of [place] heart with stable angina pectoris 12/30/2018 12/30/2018 Hypertensive kidney disease with chronic kidney disease stage III 12/25/2018 09/14/2022 Kidney disease, chronic, sta ge III (GFR 30-59 ml/min) 08/19/2018 01/23/2019 Overview: Per CKD protocol #1 HYPERTENSION NOS 07/11/2005 04/28/2009 Overview: Modified per HTN protocol #16. Dyslipidemia, goal to be determined 07/11/2005 05/18/2009 Overview: Per Lipid Taxonomy. documented as of this encounter (statuses as of 09/19/2023) Immunizations Name Administration Dates Next Due COVID-19 [...] encounter Miscellaneous Notes * Telephone Encounter - Haven Atkinson LPN - 09/19/2023 9:07 AM EDT Care Gaps Comprehensive Care Outreach Last Office/Telemedicine Visit: 03/26/2023 (in office), Visit date not found (telemedicine) Next Office Visit: 09/26/2023 Hemoglobin AIC Results: Lab Results Component Value Date/Time HEMOGLOBIN A1C - [facility] 6.1 (H) 09/14/2022 08:35 AM HEMOGLOBIN A1C - [facility] 5.8 (H) 12/13/2021 07:39 AM HEMOGLOBIN A1C - [facility] 6.6 (H) 09/14/2021 08:35 AM HEMOGLOBIN A1C - [facility] 6.1 (H) 07/07/2019 09:43 AM HEMOGLOBIN A1C - [facility] 5.9 (H) 05/16/2018 09:19 AM BP Readings from Last 1 Encounters: 03/26/23 132/52 Reviewed Health Maintenance below: Health Maintenance Topic Date Due Depression Screening 03/16/2023 COLONOSCOPY-EVERY 5 YRS AGES 18-100 08/06/2023 HbA1c 09/15/2023 GFR 09/25/2023 Labs colon Care Gap Outreach Action Taken: Unable to reach documented in this encounter Plan of Treatment Upcoming Encounters Date Type Department Care Team (Late st Contact Info) Description 09/26/2023 8:00 AM EDT Office Visit Family Practice [facility] [address] [facility] [place] [address] Billy Miguel III, MD [address] [facility] [place] [address] 10/12/2023 3:30 PM EDT Office Visit Cardiology, [facility] [address] [place] [address] David Sow MD [address] [place] [id number] Scheduled Procedures Name Priority Associated Diagnoses Date/Ti [...] 11/2022, 05/16/2022, Additional history exists Albumin/Creatinine Ratio 03/26/202403/26/ 023, 03/17/2022, 07/07/2019 CKD HGB USE SMARTSET 34516 03/26/202403/26, 09/14/2022, 09/14/2022, Additional history exists CKD PHOS USE SMARTSET 37104 03/26/202403/11, 09/14/2021, 09/14/2020, Additional history exists DTaP,Tdap,and [...] this encounter Medical Devices Implanted Type Area Cab Driver Device Identifier Shelf Expiration Date Model / Serial / Lot Lens Intraoc 23.5 - [id number] - [id number] Implanted:Qty: 1 on 01/21/2019 by Dakotah Weinstein MD at OR [facility] Left: Eye [employer]OMB 04/10/2023 [id number] / [id number] / Lens Intraoc 23.5 - [id number] - [id number] Implanted:Qty: 1 on 01/28/2019 by Dakotah Weinstein MD at OR [facility] Right: Eye [employer]CH [employer] LOMB 10/09/2023 [id number] / [id number] / [id number] documented as of this encounter Advance Directives Documents on File Type Date Recorded Patient Hospice Aide Expl anation Advance Directives and Livin g Will 07/30/2018 LIVING WILL Power of Lift Supervisor 07/30/2018 POWER OF A TTORNEY Care Teams Cargo Checker Relationship Specialty Start Date End Date Billy Miguel III, MD [address] [place] [address] PCP - General Family Medicine 07/03/18 documented as of this encounter
--- OUTSIDE RECORDS SUMMARY | 2023-10-08 07:20 | External Medical Summary ---
Author Name Unknown Address Unknown Organization K09:[facility] [address] [place] [address] Laboratory Report Ordering Provider Test Date Status KAMINI HERNADEZ III 09/26/2023 08:45:38 Final Observation Date Value Abnormality Reference (Units ) Status BUN 09/26/2023 08:45:38 24 Above high normal 6-20 (mg/dL) Final Creatinine 09/26/2023 08:45:38 1.4 Above high normal 0.6-1.2 (mg/dL) Final Glomerular filtration rate/1.73 sq M.predicted [Volume Rate/Area] in Serum, Plasma or Blood by Creatinine-based formula (CKD-EPI) 09/26/2023 08:45:38 54 Below low normal >=60 (mL/min) Final eGFR is calculated based on the CKD-EPI 2020 equation Sodium 09/26/2023 08:45:38 138 135-146 (m mol/L) Final Potassium 09/26/2023 08:45:38 4.3 3.5-5.1 (m mol/L) Final Cl 09/26/2023 08:45:38 101 98-107 (mm ol/L) Final CO2 09/26/2023 08:45:38 24 22-32 (mmo l/L) Final Anion gap 09/26/2023 08:45:38 13 7-15 (mmol /L) Final Glucose 09/26/2023 08:45:38 133 Above high normal 70 -120 (mg/dL) Final Albumin 09/26/2023 08:45:38 4.5 3.8-5.0 (g /dL) Final AST (Aspartate aminotransferase) 09/26/2023 08:45:38 24 10-50 (U/L) Fin al Alk Phos 09/26/2023 08:45:38 70 35-130 (U/ L) Final Bilirubin, Total 09/26/2023 08:45:38 0.4 <=1 .2 (mg/dL) Final Calcium 09/26/2023 08:45:38 9.9 8.4-10.2 ( mg/dL) Final Protein 09/26/2023 08:45:38 6.9 6.0-8.3 (g /dL) Final ALT (Alanine aminotransferase) 09/26/2023 08:45:38 18 10-50 (U/L) Landon moran Performing Location [facility] [address] [place] [address]
--- OUTSIDE RECORDS SUMMARY | 2023-10-08 07:20 | External Medical Summary ---
Author Name Unknown Address Unknown Organization K01:[facility] [address] [place] [address] Laboratory Report Ordering Provider Test Date Status KAMINI HERNADEZ III 09/26/2023 09:08:21 Final Normal: <30 mg/g creatinine< br/>High: 30-300 mg/g creatinine
Very High: >300 mg/g creatinine
Nephrotic: >2200 mg/g creatinine Observation Date Value Abnormality Reference (Units ) Status Albumin, Urine 09/26/2023 09:08:21 <1.20 (mg/dL) Final Creatinine, Urine 09/26/2023 09:08:21 89 (mg/dL) Final Albumin/Creatinine [Mass Ratio] in Urine 09/26/2023 09:08:21 <13 <30 (mg/g Creat) Final Performing Location [facility] [address] [place] [address]
--- OUTSIDE RECORDS SUMMARY | 2023-10-08 07:20 | External Medical Summary | Summary of Care ---
Author Name Unknown Organization [facility] Address [address] [facility] [address] Phone [phone] Care Team Providers Care Consignee Name Role Phone Lamont FARRIS MD, Satya Workman Primary Care Provider [phone] Reason for Referral * Evaluate & Treat - Unlimited Visits (Within 10 days (routine)) - Authorized Specialty Diagnoses / Procedures Referred By Joon florez Referred To Contact General Surgery Diagnoses Non-recurrent bilateral inguinal hernia without obstruction or gangrene Satya Suárez III, MD [address] [facility] [place] [address] Referral ID Status Reason Start Date Expiration Date Visits Requested Visits Authorized [id number] Authorized Specialty Services Required 09/26/[phone] Question Answer Referral Priority Within 10 days (routine) Where should this appointment be scheduled? [facility] What condition is the patient being seen for? General Surgery Conditions What condition is the patient being seen for? Hernia (excluding Hiatal) Reason for Visit * Reason Comments Re-Check Encounter Details Date Type Department Care Team (Latest Contact Info) Description 09/26/2023 8:00 AM EDT Office Visit Family Practice [facility] [address] [place] [address] [address] Satya Suárez III, MD [address] [place] [address] [id number] Atherosclerosis of [place] coronary artery of [place] heart with stable angina pectoris (HCC)*; HTN, GOAL BELOW 140/90; DYSLIPIDEMIA, GOAL LDL BELOW 100; Prediabetes; Non-recurrent bilateral inguinal hernia without obstruction or gangrene Allergies No known active allergiesdocumented as of this encounter (statuses as of 09/26/2023) Medications Medication Sig Dispensed Refills Start Date End Date Status ASPIRIN EC LOW STRENGTH 81 MG PO TBECIndications:S/P angioplasty with stent,Coronary atherosclerosis of [place] coronary artery take one tablet daily 34 [...] Capsule (Hytrin)Indications:HT N, goal below 140/90,Atherosclerosis of [place] coronary artery of [place] heart without angina pectoris TAKE 1 CAPSULE EVERY MORNING (DOSE CHANGE) 90 Capsule 3 01/26/2023 Active hydroCHLOROthiazide 25 MG Oral Tablet (Hydrodiuril)Indicatio ns:HTN, goal below 140/90 Take one 3 days per week 65 Tablet 3 03/07/2023 Active amLODIPine Besylate 10 MG Oral Tablet (Norvasc)Indications:H TN, goal below 140/90,Atherosclerosis of [place] coronary artery of [place] heart without angina pectoris,S/P angioplasty with stent TAKE 1 TABLET EVERY DAY 90 Tablet 3 05/10/2023 Active hydrALAZINE HCl 25 MG Oral Tablet (Apresoline)Indication s:HTN, goal below 140/90,Atherosclerosis of [place] coronary artery of [place] heart without angina pectoris,S/P angioplasty with stent [...] angioplasty with stent 07/11/2005 CORONARY ATHEROSCLER. 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 OF [place] CORONARY VESSEL I25.10 HTN, GOAL BELOW 140/90 [...] performed by Brandyn Agustin MD at ENDOSCOPY [facility] EGD, FLEXIBLE, DIAGNOSTIC 05/28/2020 Blackburn's esophagitis, hiatal hernia, repeat 1 yr / ESOPHAGOGASTRODUODENOSCOPY (EGD), FLEXIBLE, TRANSORAL, DIAGNOSTIC performed by Soto Delcid MD at ENDOSCOPY [facility] EGD, FLEXIBLE, DIAGNOSTIC 05/17/2021 acid reflux, hiatal hernia, repeat 3 yrs / ESOPHAGOGASTRODUODENOSCOPY (EGD), FLEXIBLE, TRANSORAL, DIAGNOSTIC performed by Soto Delcid MD at ENDOSCOPY [facility] REMOVE CATARACT, INSERT LENS PROSTH Left 01/21/2019 left EXTRACAPSULAR CATARACT REMOVAL WITH INTRAOCULAR LENS performed by Dakotah Weinstein MD at OR [facility] REMOVE CATARACT, INSERT LENS PROSTH Right 01/28/2019 right EXTRACAPSULAR CATARACT REMOVAL WITH INTRAOCULAR LENS performed by Dakotah Wenistein MD at OR [facility] Objective: The patient is a 77 year [...] on the left ASSESSMENT: I25.118 Atherosclerosis of [place] coronary artery of [place] heart with stable angina pectoris (HCC)(primary encounter [...] as well Follow up in 6 month(s). Satya Suárez III, MD documented in this encounter Nursing Notes * Layla Win LPN - 09/26/2023 7:56 AM EDT Juliocesar Campos DO presents for 6 month recheck. Medications & HM reviewed. Hernias have become problematic and would like to address that and what to do documented in this encounter Miscellaneous Notes * Addendum Note - Satya Suárez III, MD - 09/26/2023 9:16 AM EDTAddended by: SATYA SUÁREZ on: 09/26/2023 09:16 AM Modules accepted: Orders documented in this encounter Plan of Treatment Upcoming Encounters Date Type Department Care Team (Late st Contact Info) Description 09/26/2023 9:20 AM EDT Laboratory Laboratory [facility] [address] [facility] [place] [phone] [facility] [address] [facility] [place] [address] HTN, GOAL BELOW 140/90; DYSLIPIDEMIA, GOAL LDL BELOW 100; Prediabetes 09/27/2023 11:30 AM EDT Office Visit General Surgery, [facility] [address] [place] [address] Khoi Pena MD [address] [place] [address] 10/12/2023 3:30 PM EDT Office Visit Cardiology, [facility] [address] [place] [address] David Sow MD [address] [place] [address] 04/02/2024 8:00 AM EDT Office Visit Family Practice [facility] [address] [facility] [place] [address] Satya Suárez III, MD [address] [facility] [place] [place] [address] Pending Results Name Type Priority Associated Diagnoses [...] 140/90 Prediabetes 09/26/2023 9:08 AM EDT Scheduled Orders Name Type Priority [...] this encounter Medical Devices Implanted Type Area Higher Education Administrator Device Identifier Shelf Expiration Date Model / Serial / Lot Lens Intraoc 23.5 - [id number] - [id number] Implanted:Qty: 1 on 01/21/2019 by Dakotah Weinstein MD at OR [facility] Left: Eye [employer] 04/10/2023 [id number] / [id number] / Lens Intraoc 23.5 - [id number] - [id number] Implanted:Qty: 1 on 01/28/2019 by Dakotah Weinstein MD at OR [facility] Right: Eye [employer] 10/09/2023 [id number] / [id number] / [id number] documented as of this encounter Visit Diagnoses Diagnosis Atherosclerosis of [place] coronary artery of [place] heart with stable angina pectoris (HCC)- Primary [...] Documents on File Type Date Recorded Patient Director Of Patient Safety Expl anation Advance Directives and Livin g Will 07/30/2018 LIVING WILL Power of Magazine Grinder Loader 07/30/2018 POWER OF A TTORNEY Care Teams Consignee Relationship Specialty Start Date End Date Satya Suárez III, MD [address] [facility] [place] [address] PCP - General Family Medicine 07/03/18 documented as of this encounter
--- OUTSIDE RECORDS SUMMARY | 2023-10-08 07:20 | External Medical Summary ---
Author Name Unknown Address Unknown Organization [id number]:[facility]ORY [facility] [place] - [address] [facility] [address] Laboratory Report Ordering Provider Test Date Status SATYAKAMINI III 09/26/2023 08:45:38 Final Observation Date Value Abnormality Reference (Units ) Status Triglyceride 09/26/2023 08:45:38 79 <=174 ( mg/dL) Final Triglyceride Reference Range s (mg/dL):
<150 Acceptable
150-174 Borderline high
175-499 High
>=500 Very high Cholesterol 09/26/2023 08:45:38 136 <200 (mg /dL) Final Total Cholesterol Reference Ranges (mg/dL):
<200 Desirable
200-239 Borderline high
>=240 High HDL 09/26/2023 08:45:38 66 >39 (mg/dL ) Final HDL Cholesterol Reference Ra nges (mg/dL):
>=60 High (Desirable)
<50 Low (Undesirable) For Females
<40 Low (Undesirable) For Males NON-HDL CHOLESTEROL 09/26/2023 08:45:38 70 <=159 (mg/dL) Final Non-HDL Cholesterol Referenc e Range (mg/dL):
<100 Target level for high risk ASCVD patient
<130 Optimal for general population
130-159 Near optimal for general population
160-189 Borderline High
190-219 High
>=220 Very High LDL, (calculated) 09/26/2023 08:45:38 54 <= 129 (mg/dL) Final LDL Cholesterol Reference Ra nges (mg/dL):
<70 Target level for high risk ASCVD patient
<100 Optimal for general population
100-129 Near optimal for general population
130-159 Borderline high
160-189 High
>=190 Very high Performing Location LAB[facility]ORY [facility] [place] - [address] [facility] [address]
--- OUTSIDE RECORDS SUMMARY | 2023-10-08 07:20 | External Medical Summary ---
Author Name Unknown Address Unknown Organization [id number][place] [place] [facility] [address] [facility] [address] Laboratory Report Ordering Provider Test Date Status KAMINI HERNADEZ III 09/26/2023 08:45:38 Final Observation Date Value Abnormality Reference (Units ) Status HbA1C 09/26/2023 08:45:38 6.1 Above high normal 4. 0-5.6 (%) Final The use of HbA1c to monitor glycemic status is based on normal hemoglobin and HbA composition. This test should not be used in patients with abnormal hemoglobin that affects the half life of the red blood cell or the in vivo glycation rates. Glucose, estimated average 09/26/2023 08:45:38 128 Above high normal <126 (mg/dL) Landon moran Performing Location [facility] [place] [address] [facility] [address]
[2023-10-08] MEDS ORDERED: fentaNYL citrate PF 100 MCG/2 ML VIAL ONE (07:29)
[2023-10-08] MEDS ORDERED: PROPOFOL IV EMULSION 10 MG/ML 20 ML VIAL IV ONE (07:30)
[2023-10-08] MEDS ORDERED: LIDOCAINE 2% 2 ML VIAL/AMP(20MG/ML) INFIL ONE (07:30)
[2023-10-08] MEDS ORDERED: ROCURONIUM BROMIDE 10 MG/ML 5 ML VIAL IV ONE (07:30)
[2023-10-08] MEDS ORDERED: MIDAZOLAM HCL 1 MG/ML 2ML VIAL ONE (07:32)
[2023-10-08] MEDS ORDERED: ePHEDrine sulfate 50 MG/ML AMP IV PRN (07:34)
[2023-10-08] MEDS ORDERED: ATROPINE SULFATE 0.1 MG/ML 10ML SYR IV PRN (07:34)
[2023-10-08] MEDS: LR 15ML/HR IV SCH (07:49)
--- NOTE | 2023-10-08 08:11 | History & Physical Bridge Note ---
Date of Service October 08, 2023 History & Physical Bridge Note I have examined the patient, reviewed the History & Physical and in the interval since the performance of the History & Physical I have noted the following changes of clinical significance: no changes noted
[2023-10-08] MEDS: ceFAZolin 2000MG 2,000 MG/15 ML SYR IV SCH (08:59)
[2023-10-08] MEDS ORDERED: ONDANSETRON INJ 2 MG/ML 2 ML VIAL ONE (09:06)
[2023-10-08] MEDS ORDERED: ePHEDrine sulfate 50 MG/5 ML SYR ONE (09:49)
[2023-10-08] MEDS: BUPIVACAINE/EPINEPHRINE 0.25% 1:200,000 30 ML VIAL ONE (11:25)
[2023-10-08] MEDS ORDERED: NEOSTIGMINE METHYLSULFATE 1 MG/ML 10ML VIAL ONE (11:27)
--- NOTE | 2023-10-08 11:27 | Post Operative Brief Note ---
Immediate Post Op Note v1 Date of Surgery October 08, 2023 Pre & Post Diagnosis Operation Date: 10/08/23 08:40 Pre-Op Diagnosis: Bilateral Inguinal Hernias Post-Op Diagnosis: Bilateral Inguinal Hernias I identified the patient and participated in the time-out.: Yes Procedure Operation Date: 10/08/23 08:40 Actual Procedures p Laparoscopic Right Inguinal Hernia Repair With Mesh, Open Left Inguinal Hernia Repar With Mesh(Bilateral) - Khoi Pena MD Surgeon Khoi Pena MD Inorganic Chemist ORTIZ Mcarthur assisted with tissue retraction, camera op, closure Estimated Blood Loss 10 Findings Consistent with Post-Op Diagnosis large incarcerated left inguinal hernia containing bowel, smaller bowel containing right inguinal hernia
[2023-10-08] MEDS ORDERED: GLYCOPYRROLATE 0.2 MG/ML VIAL ONE (11:28)
--- NOTE | 2023-10-08 11:34 | Operative Report ---
Post Operative Report Pre & Post Diagnosis Operation Date: 10/08/23 08:40 Pre-Op Diagnosis: Bilateral Inguinal Hernias Post-Op Diagnosis: Bilateral Inguinal Hernias I identified the patient and participated in the time-out.: Yes Procedure Operation Date: 10/08/23 08:40 Actual Procedures p Laparoscopic Right Inguinal Hernia Repair With Mesh, Open Left Inguinal Hernia Repar With Mesh(Bilateral) - Khoi Pena MD Surgeon Khoi Pena MD Home Care Attendant ORTIZ Mcarthur assisted with tissue retraction, camera op, closure Estimated Blood Loss 10 Findings Consistent with Post-Op Diagnosis large bowel containing incarcerated left inguinal hernia, pantaloon defect; smaller right bowel containing indirect hernia Specimens hernia sac and contents Drains none Anesthesia Type General Complications no immediate complications Description of Procedure the patient was taken to the operating room, and placed supine on the operating table. A timeout was performed, perioperative antibiotics were administered, SCD boots were placed. After adequate anesthesia and analgesia was obtained, the abdomen was prepped and draped in the normal sterile fashion. A 1 cm incision was made in the supraumbilical region and carried down to the level of the fascia. The fascia was grasped with a trach hook, and a varies needle was used to enter the abdominal cavity. The abdomen was insufflated to pressure of 15 mmHg, and a 12 mm trocar was placed in this location. A 10 mm, 30 degree laparoscope was placed into the abdominal cavity, and the abdomen was surveyed. The findings were as follows Very large left inguinal hernia containing sigmoid colon, small intestine, omentum; large right inguinal hernia containing small bowel. The left inguinal hernia was incarcerated Two 5 mm trochars were placed bilaterally under direct visualization. The patient was placed in Trendelenburg position. The peritoneum on the right side was incised with scissor cautery. This was carried out laterally. The peritoneum was then swept down away from the anterior abdominal wall towards the inguinal canal. The hernia was reduced, and care was taken to avoid injury to the inferior epigastrics and contents of the inguinal canal. Once this is complete a large right-sided 3D max light mesh was brought onto the field and maneuvered down the 12 mm port. It was unfurled in the abdomen and maneuvered into position covering the inguinal region. The mesh was then secured into place with the tacker. Once this was complete, the peritoneum was closed over the top of the mesh again with the tacker. Attention was turned to hemostasis, which is excellent. at this point, we turned to the left side. Attempted to reduce the hernia from the inside. We gently attempted to reduce the omentum first. This was not successful. The small bowel reduced fairly easily. We then attempted to reduce the sigmoid colon, but this was unable to be completed. At this point, the decision was made to proceed with an open left inguinal hernia repair. All trochars were removed under direct visualization. The fascia in the 12 mm port site was closed with 0 Vicryl suture. An ilioinguinal nerve block was effected on the Left side. An oblique incision was made in the left inguinal region carried down to the level of the external oblique fascia. The external oblique fascia was opened through the external ring. at this point we noted a very large hernia sac descending into the scrotum. This contained the aforementioned bowel and omentum. We slowly dissected free the cord structures away from the hernia sac. The entire inguinal floor was obliterated and there was a pantaloon defect in this location. After the hernia sac was dissected back from the scrotum, it was opened. Adhesions of the omentum and large bowel to the hernia sac were dissected free with Metzenbaum scissor dissection. We noted two 1 cm areas of serosal tearing on the colon. These were closed with interrupted 3-0 silk sutures. The contents of the hernia were then reduced back into the abdominal cavity. The high ligation was performed on the hernia sac and the remaining peritoneum was closed with 3-0 silk suture. This was reduced back into the abdominal cavity. The transversalis fascia was identified, and the inguinal floor was reapproximated with 2-0 Prolene sutures in an interrupted fashion. O nce this was complete, A plug and patch were brought onto the field. The plug was sewn into the internal rating with 2-0 Prolene. A patch was then brought onto the field a keyhole incision was cut, and the patch was secured medially to the pubic tubercle, inferiorly to the shelving edge of the inguinal ligament, superolaterally to the transversalis and internal oblique fascia. The internal ring was reapproximated with 2-0 Prolene suture. Attention was turned to hemostasis, which was excellent. The wound was copiously irrigated and suctioned free, again hemostasis was checked and was excellent. The external oblique fascia was closed with 2-0 Vicryl. The subcutaneous tissue was closed with 3-0 Vicryl. Skin was closed with running 4- 0 Monocryl subcuticular stitch. the skin in the laparoscopic port sites was closed with a running 4-0 Monocryl subcuticular stitch as well. Dermabond was applied. He tolerated the procedure without complication, was transferred in stable condition to the PACU. All instrument, needle, and sponge counts were correct at the end of the case. The patient tolerated the procedure without complication, and was transferred in stable condition to the PACU. All instrument, needle, and sponge counts were correct at the end of the case. My office manager executive assistant was necessary throughout the procedure for tissue retraction, possible camera operation, and closure of the wounds. I understand that section 1842(b)(7)(D) of the Social Security act generally prohibits Medicare physician fee schedule payment for the services of assistants at surgery in teaching hospitals when qualified residents are available to furnish such services. I certify that the services for which payment is claimed were medically necessary and that no qualified resident was available to perform the services. I further understand that these services are subject to postpayment review by the Medicare carrier. I attest to the content of the Intraoperative Record and any orders documented therein. Any exceptions are noted below.
[2023-10-08] MEDS: fentaNYL citrate PF 100 MCG/2 ML VIAL IV PRN (12:12)
[2023-10-08] MEDS: ONDANSETRON INJ 2 MG/ML 2 ML VIAL IV PRN (12:12)
--- NOTE | 2023-10-08 12:27 | Anesthesiology Progress Note ---
Date of Service October 08, 2023 Anesthesia Post Procedure Vital Signs Vital Signs: Temp Pulse Pulse Resp BP Pulse Ox O2 Del Method 10/08/23 12:25 47 L 12 114/42 L 95 Oxymask 10/08/23 12:15 48 L 12 111/43 L 96 Oxymask 10/08/23 12:05 55 L 12 125/49 L 95 Oxymask 10/08/23 11:55 61 14 131/59 L 97 Oxymask 10/08/23 11:49 97.0 F L 59 L 14 137/33 L 97 Oxymask 10/08/23 07:36 97.7 F 70 18 168/62 H 98 Room Air O2 Flow Rate 10/08/23 12:25 4 10/08/23 12:15 4 10/08/23 12:05 6 10/08/23 11:55 10 10/08/23 11:49 10 10/08/23 07:36 Pain Intensity Left Lower Abdomen: Pain Intensity: 5 Transfer of Care Handoff Completed per policy Notes Mental Status: alert / awake / arousable and participated in evaluation Patient Amnestic to Procedure: Yes Nausea / Vomiting: adequately controlled Pain: adequately controlled Airway Patency, RR, SpO2: stable & adequate BP & HR: stable & adequate Hydration State: stable & adequate Anesthetic Complications: no major complications apparent and Pt Satisfied with anesthetic care
[2023-10-08] MEDS: HYDROmorphone INJ 1 MG/ML SYRINGE IV PRN (13:25)
[2023-10-08] MEDS: HYDROmorphone INJ 2 MG/ML SYR/VIAL ONE (13:26)
[2023-10-08] MEDS ORDERED: PROMETHAZINE HCL 12.5 MG in SODIUM CHLORIDE 0.9% 50 ML IV PRN (14:29)
[2023-10-08] MEDS ORDERED: oxyCODONE/ACETAMINOPHEN 5mg/325mg TAB PO PRN (14:29)
[2023-10-08] MEDS ORDERED: ONDANSETRON INJ 2 MG/ML 2 ML VIAL IV PRN (14:29)
[2023-10-08] MEDS: MoRPHine SULFATE 2 MG/ML CARP IV PRN (16:41)
[2023-10-08] MEDS: ATORVASTATIN 40 MG TAB PO SCH (20:45)
[2023-10-08] MEDS: METOPROLOL SUCC 25MG EXT REL TAB PO SCH (20:45)
[2023-10-08] MEDS: MULTIVITAMIN TAB PO SCH (20:45)
[2023-10-08] MEDS: TERAZOSIN HCL 5 MG CAP PO SCH (20:45)
[2023-10-08] MEDS: FINASTERIDE 5 MG TAB PO SCH (20:45)
[2023-10-08] MEDS: hydrALAZINE HCL 25 MG TAB PO SCH (20:45)
[2023-10-08] MEDS: LOSARTAN POTASSIUM 50 MG TAB PO SCH (20:45)
[2023-10-08] MEDS: KETOROLAC TROMETHAMINE 15 MG/ML VIAL IV PRN (21:50)
[2023-10-09] MEDS: oxyCODONE/ACETAMINOPHEN 5mg/325mg TAB PO PRN (07:22)
[2023-10-09] MEDS: amLODIPine BESYLATE 5 MG TAB PO SCH (07:22)
[2023-10-09] MEDS: PANTOprazole 40 MG TAB PO SCH (07:22)
[2023-10-09] MEDS: ENOXAPARIN INJ 40 MG/0.4 ML SYR SQ SCH (07:23)
--- NOTE | 2023-10-09 11:45 | Discharge Summary ---
Date of Service October 09, 2023 Admission HPI Per Admitting Provider Patient presented to [facility] for elective bilateral inguinal hernia repair by Dr. Khoi Pena. Principal Diagnosis Bilateral inguinal hernias Discharge Exam Constitutional WD/WN, vitals as above cooperative and comfortable; no acute distress and not ill appearing Respiratory normal respiratory effort; no respiratory distress, no labored breathing and no retractions Gastrointestinal (Abdomen) Inspection/Auscultation: abdomen normal to inspection and + abdominal surgical incision (laparoscopic x 3 c/d/i with dermaond, Left inguinal incision c/d/i); abdomen not distended Percussion/Palpation: + abdomen tender (minimal at incision sites) and abdomen soft; no guarding, abdomen not rigid and abdomen not firm Skin no rashes, warm and dry Psychiatric A+Ox3, euthymic affect Discharge Data Allergies Allergy/AdvReac Type Severity Reaction Status Date / Time No Known Allergies Allergy Unknown Verified 10/08/23 07:31 Procedures Performed Operation Date: 10/08/23 08:40 Actual Procedures p Laparoscopic Right Inguinal Hernia Repair With Mesh, Open Left Inguinal Hernia Repar With Mesh(Bilateral) - Khoi Pena MD Hospital Course (1) Hernia: Plan Patient was taken to operating room for bilateral laparoscpic inguinal hernia repair by DR. Pena on 10/08/2023. Patient found to have large bilateral inguinal hernias containing bowel. Right inguinal hernia was reducible laparoscopically and repair however the large left inguinal hernia containing sigmoid colon was unable to be reduced and repair in open fashion. Given extent and size of hernia, patient was admitted overnight for observation and pain management. Diet advanced as tolerated, activity as tolerated, pain mangement as needed. Patient tolerated diet, pain was controlled with percocet and patient was discharged home on POD # 1 in stable condition. Total Time Total Time Spent Total Time Spent (In Minutes): 30 Total Time Includes: Examination of the Patient, Discharge Planning and Me dication Reconciliation Discharge Plan Discharge Items Patient Disposition: Home - Self-Care Reason For Visit: Bilateral Inguinal Hernias Discharge Diagnosis: Bilateral inguinal hernias Activity: Per Instructions section Non-emergency contact: Primary Care Provider and Surgeon Call non-emergency contact if: you have any medication questions, your pain is not controlled, your pain is worsening, you have a fever, your temperature is above 101, your wound has increased redness, your wound has increased drainage and your wound pain has increased Follow-up/Referrals: Khoi Pena MD [Physician] - Billy Miguel MD [Primary Care Provider] - Diet: Regular Addtl Attending Provider Instructions: Post-Surgical ~Discharge Instructions Activity Recommendations: - lifting limitation: (10 pounds for 4-6 weeks), - exercise/sex/sports limit: (nonstrenuous for 4-6 weeks), - driving or machine use limit: (none for 1 week), - Shower/bathe limit: (may shower beginning tomorrow) Diet: - Resume previous diet SPECIAL CARE INSTRUCTIONS: - May shower in 24 hours. Let water run over area and pat dry. - Leave surgical glue on incisions - Call the surgeon's office with any questions or concerns - - (ex. temperature higher than 101 degrees F, excessive bleeding or pain). MEDICATIONS: - Resume previous medications unless instructed otherwise by your surgeon. - Ibuprofen 600 mg every 6 hours with food - Percocet 1 every 6 hours, as needed for pain FOLLOW UP VISIT: - If not already scheduled, please call the office to schedule a two week follow-up appointment. Office number Pending Studies at Discharge: No Stand-Alone Forms: My [facility] Medications and DC Order Prescriptions: New oxycodone-acetaminophen 5-325 mg tablet 1 tab PO Q6H PRN (Reason: pain) Qty: 12 0RF Rx Instructions: postop pain, initial treatment Continued losartan 100 mg tablet 100 mg PO PM metoprolol succinate 25 mg tablet extended release 24 hr 12.5 mg PO PM amlodipine 10 mg tablet 10 mg PO QAM atorvastatin 40 mg tablet 40 mg PO PM omeprazole 40 mg capsule,delayed release(DR/EC) 40 mg PO QAM multivitamin Tablet 1 tab PO PM hydrochlorothiazide 25 mg tablet 25 mg PO .UD Rx Instructions: Mon-Wed-Fri aspirin 81 mg capsule 81 mg PO QAM terazosin 5 mg capsule 5 mg PO QPM hydralazine 25 mg tablet 25 mg PO BID finasteride 5 mg tablet 5 mg PO QPM Discharge Orders: Discharge Order (Routine); Ordered 10/09/23 Ordered By: Mary Mcarthur Admission Data Admit Date/Time: 10/08/23 11:37 Attending Provider: Khoi Pena Admit Provider: Khoi Pena Primary Care Provider: Billy Miguel Other Interventions: Discharge Summary Assessment (RN) Last Done: 10/09/23 14:03
[2023-10-09] MEDS: DOCUSATE SODIUM 100 MG CAP PO ONE (14:35)
[2023-10-10] MEDS ORDERED: hydroCHLOROthiazide 25 MG TAB PO SCH (09:00)
== END 2023-10-09 15:48 | disposition home or self-care (01) ==
LOC: 3N 07:05 → ASU 07:05